=== PATIENT | female | born 1940 | race Caucasian/White ===

== ENCOUNTER → 2023-11-15 | Outpatient (CLI) | payer OTHER ==
[2023-11-15 15:36] LABS: Bacterial Vaginosis PCR Negative (NEGATIVE); Candida Group, PCR NOT DETECTED (NOT DETECT); Candida glabrata-krusei, PCR NOT DETECTED (NOT DETECT)
== END ==
LOC: LAB SHORT 11:34 → LAB 11:34
PROVIDERS: Obstetrics & Gynecology
DX: N89.8 Other specified noninflammatory disorders of vagina (principal)
CPT/HCPCS: 87481; 87661; 87801

== ENCOUNTER → 2023-11-24 | Outpatient (CLI) | payer OTHER | LOC: LAB SHORT 17:31 → LAB 17:31 | DX: R50.9 Fever, unspecified (principal) | CPT/HCPCS: 87077; 87086; 87186 ==

== ENCOUNTER 2023-11-26 15:43 | Emergency (ER) | payer OTHER ==
[~2023-11-26] VITALS: Ht 162.6 cm; Wt 63.5 kg
[2023-11-26 18:13] LABS: BASOPHILS ABSOLUTE AUTO 0.01 K/mm3 (0.00-0.23); BASOPHILS PERCENT AUTO 0 % (0-2); EOSINOPHILS ABSOLUTE AUTO 0.08 K/mm3 (0.00-0.68); EOSINOPHILS PERCENT AUTO 1 % (0-6); Hematocrit 36.4 % (33.0-51.0); Hemoglobin 12.1 g/dL (11.5-16.0); IMMATURE GRAN ABSOLUTE AUTO 0.04 K/mm3 (0.00-0.10); IMMATURE GRAN PERCENT AUTO 0 % (0-1); LYMPHOCYTES ABSOLUTE AUTO 0.85 K/mm3 (0.84-5.20); LYMPHOCYTES PERCENT AUTO 10 % (21-46); MONOCYTES ABSOLUTE AUTO 0.97 K/mm3 (0.16-1.47); MONOCYTES PERCENT AUTO 11 % (4-13); Mean Corpuscular HGB 30.5 pg (26.0-34.0); Mean Corpuscular HGB Conc 33.2 g/dL (31.5-36.5); Mean Corpuscular Volume 92 fL (80-100); Mean Platelet Volume 10.5 fL (9.1-12.4); NEUTROPHILS ABSOLUTE AUTO 7.02 K/mm3 (1.96-9.15); NEUTROPHILS PERCENT AUTO 78 % (41-73); Platelet Count 222 K/mm3 (150-400); RDW Coefficient Variation 13.3 % (11.7-14.2); RDW Standard Deviation 45.5 fL (35.1-46.3); Red Blood Cell Count 3.97 M/mm3 (3.80-5.20); White Blood Cell Count 8.97 K/mm3 (4.00-11.30)
[2023-11-26 18:36] LABS: Albumin, Blood 2.8 g/dL (3.4-5.0); Albumin/Globulin Ratio 0.7 (0.8-1.8); Bilirubin, Total 0.5 mg/dL (0.1-1.0); Bun/Creatinine Ratio 21.7 (12.0-20.0); Calcium, Blood 9.4 mg/dL (8.5-10.1); Creatinine, Blood 2.72 mg/dL (0.40-1.00); Globulin, Blood 4.1 g/dL (2.2-4.0); Potassium, Blood 3.6 mmol/L (3.5-5.5); Total Protein, Blood 6.9 g/dL (6.4-8.2)
== END 2023-11-26 21:42 | disposition home or self-care (01) ==
LOC: ER 15:43
PROVIDERS: Student in an Organized Health Care Education/Training Program
DX: R31.9 Hematuria, unspecified (principal); N18.9 Chronic kidney disease, unspecified; D63.1 Anemia in chronic kidney disease; Z88.0 Allergy status to penicillin; Z88.2 Allergy status to sulfonamides; Z88.1 Allergy status to other antibiotic agents
CPT/HCPCS: 76770; 80053; 85025; 99284-25

== ENCOUNTER → 2023-12-21 | Outpatient (CLI) | payer OTHER ==
[2023-12-22 07:51] LABS: Bacterial Vaginosis PCR Negative (NEGATIVE); Candida Group, PCR NOT DETECTED (NOT DETECT)
[2023-12-22 07:58] LABS: Candida glabrata-krusei, PCR DETECTED (NOT DETECT)
== END ==
LOC: LAB SHORT 13:56 → LAB 13:56
PROVIDERS: Obstetrics & Gynecology
DX: N89.8 Other specified noninflammatory disorders of vagina (principal)
CPT/HCPCS: 87481; 87661; 87801

== ENCOUNTER → 2023-12-28 | Outpatient (CLI) | payer OTHER ==
[2023-12-28 16:59] LABS: Bacterial Vaginosis PCR Negative (NEGATIVE); Candida Group, PCR NOT DETECTED (NOT DETECT)
[2023-12-28 17:15] LABS: Candida glabrata-krusei, PCR DETECTED (NOT DETECT)
== END | disposition home or self-care (01) ==
LOC: LAB SHORT 13:31 → LAB 13:31
PROVIDERS: Obstetrics & Gynecology
DX: N89.8 Other specified noninflammatory disorders of vagina (principal)
CPT/HCPCS: 87481; 87661; 87801

== ENCOUNTER → 2024-01-04 | Outpatient (CLI) | payer OTHER ==
[2024-01-12 07:33] LABS: HPV HIGH RISK BY TMA Not Detected; HPV SOURCE Vaginal
== END ==
LOC: LAB 13:56 → LAB SHORT 13:56
PROVIDERS: Obstetrics & Gynecology
DX: Z01.419 Encounter for gynecological examination (general) (routine) without abnormal findings (principal)
CPT/HCPCS: 87624; G0123

== ENCOUNTER → 2024-02-15 | Outpatient (CLI) | payer OTHER ==
[2024-02-15 15:49] LABS: Source, Urine Clean Catch
[2024-02-15 17:23] LABS: Appearance, Urine Hazy (Clear); Bilirubin, Urine Neg (Neg); Blood, Urine 4+ (Neg); Glucose Qualitative, Urine Neg (Neg); Ketones, Urine Neg (Neg); Leukocyte Esterase, Urine 3+ (Neg); Nitrite, Urine Neg (Neg); Protein, Urine 3+ (Neg); Specific Gravity, Urine 1.005 (1.003-1.022); Urobilinogen, Urine NORM (Normal)
[2024-02-15 18:26] LABS: Color, Urine Pale Yellow (P-Yellow); Red Blood Cells, Urine 0-2 /hpf (0-2); Squamous Epithelial Cells Rare /hpf (Few); White Blood Cells, Urine 50-100 /hpf (0-5)
[2024-02-15 18:27] LABS: Bacteria Many /hpf; Mucus Light (0-Heavy)
== END | disposition home or self-care (01) ==
LOC: LAB SHORT 15:44 → LAB 15:44
PROVIDERS: Obstetrics & Gynecology
DX: N39.498 Other specified urinary incontinence (principal)
CPT/HCPCS: 81001; 87077; 87086; 87186

== ENCOUNTER → 2024-02-23 | Outpatient (CLI) | payer OTHER | LOC: LAB SHORT 13:37 → LAB 13:37 | DX: R30.0 Dysuria (principal) | CPT/HCPCS: 87086 ==

== ENCOUNTER → 2024-02-29 | Outpatient (CLI) | payer OTHER ==
[2024-02-29 12:32] LABS: Source, Urine Clean Catch
[2024-02-29 15:33] LABS: Bilirubin, Urine Neg (Neg); Blood, Urine 1+ (Neg); Glucose Qualitative, Urine Neg (Neg); Ketones, Urine Neg (Neg); Leukocyte Esterase, Urine 2+ (Neg); Nitrite, Urine Neg (Neg); Protein, Urine 3+ (Neg); Urobilinogen, Urine NORM (Normal)
[2024-02-29 15:49] LABS: Appearance, Urine Clear (Clear); Color, Urine Pale Yellow (P-Yellow)
[2024-02-29 15:50] LABS: Bacteria Few /hpf; Red Blood Cells, Urine 0-2 /hpf (0-2); Squamous Epithelial Cells Rare /hpf (Few)
== END ==
LOC: LAB 12:30 → LAB SHORT 12:30
PROVIDERS: Obstetrics & Gynecology
DX: R30.0 Dysuria (principal)
CPT/HCPCS: 81001; 87086

== ENCOUNTER → 2024-03-07 | Outpatient (CLI) | payer OTHER ==
[2024-03-07 12:22] LABS: Source, Urine Clean Catch
[2024-03-07 13:46] LABS: Appearance, Urine Hazy (Clear); Bilirubin, Urine Neg (Neg); Blood, Urine 1+ (Neg); Glucose Qualitative, Urine Neg (Neg); Ketones, Urine Neg (Neg); Leukocyte Esterase, Urine 3+ (Neg); Nitrite, Urine Neg (Neg); Protein, Urine 3+ (Neg); Urobilinogen, Urine NORM (Normal)
[2024-03-07 14:01] LABS: Color, Urine Pale Yellow (P-Yellow)
[2024-03-07 14:02] LABS: Bacteria Many /hpf; Renal Epithelial Rare /hpf (0-Rare); Squamous Epithelial Cells Few /hpf (Few); White Blood Cells, Urine 25-50 /hpf (0-5)
== END | disposition home or self-care (01) ==
LOC: LAB SHORT 12:20 → LAB 12:20
PROVIDERS: Obstetrics & Gynecology
DX: R35.0 Frequency of micturition (principal)
CPT/HCPCS: 81001; 87077; 87086; 87186

== ENCOUNTER → 2024-03-16 | Outpatient (CLI) | payer OTHER ==
[2024-03-16 12:46] LABS: Source, Urine Clean Catch
[2024-03-16 14:30] LABS: Appearance, Urine Hazy (Clear); Bilirubin, Urine Neg (Neg); Blood, Urine 2+ (Neg); Glucose Qualitative, Urine Neg (Neg); Ketones, Urine Neg (Neg); Leukocyte Esterase, Urine 3+ (Neg); Nitrite, Urine Neg (Neg); Protein, Urine 3+ (Neg); Urobilinogen, Urine NORM (Normal)
[2024-03-16 14:57] LABS: Color, Urine Pale Yellow (P-Yellow)
[2024-03-16 14:59] LABS: Bacteria Many /hpf; Squamous Epithelial Cells Few /hpf (Few); Transitional Epithelial Cells Few /hpf (0-Rare); White Blood Cells, Urine 25-50 /hpf (0-5)
== END ==
LOC: LAB 12:42 → LAB SHORT 12:42
PROVIDERS: Obstetrics & Gynecology
DX: R35.0 Frequency of micturition (principal)
CPT/HCPCS: 81001; 87077; 87086; 87186

== ENCOUNTER → 2024-03-23 | Outpatient (CLI) | payer OTHER ==
[2024-03-23 20:15] LABS: Bacterial Vaginosis PCR Negative (NEGATIVE); Candida Group, PCR NOT DETECTED (NOT DETECT); Candida glabrata-krusei, PCR NOT DETECTED (NOT DETECT)
== END ==
LOC: LAB SHORT 17:25 → LAB 17:25
PROVIDERS: Obstetrics & Gynecology
DX: N89.8 Other specified noninflammatory disorders of vagina (principal)
CPT/HCPCS: 87481; 87661; 87801

== ENCOUNTER → 2024-03-31 | Outpatient (CLI) | payer OTHER ==
[2024-03-31 13:30] LABS: Source, Urine Voided
[2024-03-31 15:15] LABS: Appearance, Urine Hazy (Clear); Bilirubin, Urine Neg (Neg); Blood, Urine 4+ (Neg); Glucose Qualitative, Urine Neg (Neg); Ketones, Urine Neg (Neg); Leukocyte Esterase, Urine 3+ (Neg); Nitrite, Urine Neg (Neg); Protein, Urine 3+ (Neg); Specific Gravity, Urine 1.005 (1.003-1.022); Urobilinogen, Urine NORM (Normal)
[2024-03-31 15:25] LABS: Color, Urine Pale Yellow (P-Yellow)
[2024-03-31 15:26] LABS: Bacteria Many /hpf; Squamous Epithelial Cells Rare /hpf (Few); White Blood Cells, Urine 25-50 /hpf (0-5)
== END | disposition home or self-care (01) ==
LOC: LAB 13:23 → LAB SHORT 13:23
PROVIDERS: Obstetrics & Gynecology
DX: R35.0 Frequency of micturition (principal)
CPT/HCPCS: 81001; 87077; 87086; 87186

== ENCOUNTER → 2024-04-27 | Outpatient (CLI) | payer OTHER ==
[2024-04-27 13:04] LABS: Source, Urine Voided
[2024-04-27 14:51] LABS: Appearance, Urine Cloudy (Clear); Bilirubin, Urine Neg (Neg); Blood, Urine 2+ (Neg); Glucose Qualitative, Urine 1+ (Neg); Ketones, Urine Neg (Neg); Leukocyte Esterase, Urine 3+ (Neg); Nitrite, Urine Neg (Neg); Protein, Urine 4+ (Neg); Specific Gravity, Urine 1.015 (1.003-1.022); Urobilinogen, Urine NORM (Normal)
[2024-04-27 14:58] LABS: Color, Urine Pale Yellow (P-Yellow)
[2024-04-27 15:00] LABS: White Blood Cells, Urine TNTC /hpf (0-5)
[2024-04-27 15:01] LABS: Bacteria Many /hpf; Squamous Epithelial Cells Rare /hpf (Few)
== END | disposition home or self-care (01) ==
LOC: LAB SHORT 12:59 → LAB 12:59
PROVIDERS: Obstetrics & Gynecology
DX: R35.0 Frequency of micturition (principal)
CPT/HCPCS: 81001; 87077; 87086; 87186

== ENCOUNTER 2024-05-25 13:00 | Inpatient (IN) | payer OTHER ==
[~2024-05-25] VITALS: Ht 154.9 cm; Wt 46.6 kg
[~2024-05-25 13:00] MED LIST: AMLO10 PO; ATOR80 PO; CIPR250 PO; ESTRADIOL42.5 GM VAG; EUTHYROX125 MCG PO; IPRATROPIUM BRO15 ML; Isosorbide Mono30 MG PO; VIT D2-K1 20-1259 ML PO
[2024-05-25 13:26] VITALS: BP 158/72
[2024-05-25] MEDS ORDERED: Ondansetron HCl 2 MG / ML 2ML Vial IV PRN (13:45)
[2024-05-25] MEDS ORDERED: FLU VACC TS2024-25(6MOS UP)/PF 45 MCG/0.5 ML SYRINGE IM SCH (13:45)
[2024-05-25 15:25] VITALS: BP 157/69
[2024-05-25] MEDS ORDERED: VITAMIN D5000 UNIT PO (15:31)
[2024-05-25 16:14] LABS: BASOPHILS ABSOLUTE AUTO 0.03 K/mm3 (0.00-0.23); BASOPHILS PERCENT AUTO 0 % (0-2); EOSINOPHILS ABSOLUTE AUTO 0.01 K/mm3 (0.00-0.68); EOSINOPHILS PERCENT AUTO 0 % (0-6); Hematocrit 31.2 % (33.0-51.0); Hemoglobin 10.4 g/dL (11.5-16.0); IMMATURE GRAN ABSOLUTE AUTO 0.04 K/mm3 (0.00-0.10); IMMATURE GRAN PERCENT AUTO 0 % (0-1); LYMPHOCYTES ABSOLUTE AUTO 0.51 K/mm3 (0.84-5.20); LYMPHOCYTES PERCENT AUTO 4 % (21-46); MONOCYTES ABSOLUTE AUTO 0.43 K/mm3 (0.16-1.47); MONOCYTES PERCENT AUTO 4 % (4-13); Mean Corpuscular HGB 30.2 pg (26.0-34.0); Mean Corpuscular HGB Conc 33.3 g/dL (31.5-36.5); Mean Corpuscular Volume 91 fL (80-100); Mean Platelet Volume 11.1 fL (9.1-12.4); NEUTROPHILS ABSOLUTE AUTO 10.99 K/mm3 (1.96-9.15); NEUTROPHILS PERCENT AUTO 92 % (41-73); Platelet Count 207 K/mm3 (150-400); RDW Coefficient Variation 13.8 % (11.7-14.2); RDW Standard Deviation 45.1 fL (35.1-46.3); Red Blood Cell Count 3.44 M/mm3 (3.80-5.20); White Blood Cell Count 12.01 K/mm3 (4.00-11.30)
[2024-05-25 16:39] LABS: Bun/Creatinine Ratio 13.2 (12.0-20.0); Calcium, Blood 10.1 mg/dL (8.5-10.1); Creatinine, Blood 2.05 mg/dL (0.40-1.00); Potassium, Blood 4.1 mmol/L (3.5-5.5)
--- NOTE | 2024-05-25 18:23 | NUR ---
Direct Admit / End of Shift Pt brought to PCU-7 as a medical status direct admit from imaging @ 1315. Pt had a right renal biopsy w/ "more than normal" amount of bleeding after procedure. Pt right lower back w/ swelling surrounding access site for biopsy. Pt A&O x4. VSS. Spo2 > 92% on RA. Monitor showing SR, HR 90s. Pt reporting "severe ache" in area of biopsy but states "I think it might be intestinal." Pt reporting "the severe pain started a few days ago." Then the pt states "the pain started maybe 3 weeks ago." Pt states "they did the biopsy today because of the way my kidney numbers have been." Pt then states "I had a polyp & my doctor was thinking I should be on an intestinal medication. I'm not sure what exactly my pain is from." Pt having difficulty describing where exactly the pain is coming from. Pt up to BSC 3-4 times this shift w/ small-mod amount of dark maroon clots & bright red blood in commode. Pt states amount in commode is "about the same" as the amount she was having after the biopsy prior to arrival to PCU. Pt w/ nausea, medicated per EMAR w/ improvement.
[2024-05-25 20:55] VITALS: BP 127/67
[2024-05-25] MEDS ORDERED: Estradiol Vag Cream 0.1 MG/G 42.5 GM Tube VAG SCH (21:00)
[2024-05-25] MEDS ORDERED: Ipratropium 0.06% Nasal Spray SCH (21:00)
[2024-05-25] MEDS ORDERED: Acetaminophen 500 MG Tab PO PRN (21:25)
[2024-05-26] VITALS (8 sets, daily range): BP systolic 100–134; BP diastolic 52–82
[2024-05-26 04:36] LABS: Hematocrit 24.3 % (33.0-51.0); Mean Corpuscular HGB 30.1 pg (26.0-34.0); Mean Corpuscular HGB Conc 32.9 g/dL (31.5-36.5); Mean Corpuscular Volume 91 fL (80-100); Mean Platelet Volume 11.4 fL (9.1-12.4); Platelet Count 148 K/mm3 (150-400); RDW Coefficient Variation 14.1 % (11.7-14.2); RDW Standard Deviation 46.8 fL (35.1-46.3); Red Blood Cell Count 2.66 M/mm3 (3.80-5.20); White Blood Cell Count 21.99 K/mm3 (4.00-11.30)
[2024-05-26 05:06] LABS: BAND PERCENT MAN 18 % (0-8); BASOPHILS PERCENT MAN 0 % (0-2); EOSINOPHILS PERCENT MAN 0 % (0-6); MONOCYTES ABSOLUTE MAN 0.21 K/mm3 (0.16-1.47); MONOCYTES PERCENT MAN 1 % (4-13); NEUTROPHILS ABSOLUTE MAN 21.77 K/mm3 (1.96-9.15); SEG NEUTROPHILS PERCENT MAN 81 % (41-73); TOTAL CELLS COUNTED 100
[2024-05-26] MEDS ORDERED: Levothyroxine Sodium 0.025 MG Tab PO SCH (06:00)
--- NOTE | 2024-05-26 07:17 | NUR ---
SHIFT SUMMARY: PT IS A&OX4, FORGETFUL AND PLEASANTLY CONFUSED AT TIMES. VSS ON RA, FEBRILE, T-MAX 100.9F. MILD DISCOMFORT TO HER RIGHT SIDE OF BACK WHERE HER PUNCTURE SITE IS. DRESSING IS C/D/I. AREA IS SOFT TO PALPATE BUT TENDER AND ECCYMOTIC. MEDICATED WITH TYLENOL. ON A CONS CARB DIET, PT JUST KEPT SAYING SHE ALWAYS DRINKS A LOT OF WATER TO MAKE HER URINATE. SBA TO BSC. PT VOIDED 150 ML OF DARK MAROON COLORED BLOOD. PULL-UP WITH SMALL AMOUNT OF DARK MAROON COLORED BLOOD WELL. HGB DROPPED FROM 10.4 TO 8.0, DR CAMPBELL MADE AWARE. NEW ORDER TO RECHECK H&H 6 HOURS AFTER LAST DRAW. NO BM THIS SHIFT, PT STATES SHE FEELS CONSTIPATED. BED IN LOWEST POSITION, CALL LIGHT WITHIN REACH. BED ALARM SET FOR PT'S SAFETY.
[2024-05-26] MEDS ORDERED: CefTRIAXone Sodium 1,000 MG in NS 100 ML IV SCH (07:33)
[2024-05-26 07:55] LABS: Source, Urine Clean Catch
[2024-05-26] MEDS ORDERED: Lactated Ringer's 500 ML IV SCH ×2 (08:15→14:15)
[2024-05-26 08:20] LABS: Appearance, Urine Bloody (Clear); Bilirubin, Urine Neg (Neg); Blood, Urine 4+ (Neg); Color, Urine Red (P-Yellow); Glucose Qualitative, Urine Neg (Neg); Ketones, Urine Neg (Neg); Leukocyte Esterase, Urine Neg (Neg); Nitrite, Urine Neg (Neg); Protein, Urine 4+ (Neg); Specific Gravity, Urine 1.015 (1.003-1.022); Urobilinogen, Urine NORM (Normal)
[2024-05-26 08:31] LABS: Bacteria Mod /hpf; Red Blood Cells, Urine 50-100 /hpf (0-2); Squamous Epithelial Cells Few /hpf (Few); White Blood Cells, Urine 25-50 /hpf (0-5)
[2024-05-26] MEDS ORDERED: Isosorbide Mononitrate 30 MG TABCR PO SCH (09:00)
[2024-05-26] MEDS ORDERED: Atorvastatin 40 MG Tab PO SCH (09:00)
[2024-05-26] MEDS ORDERED: AmLODIPine Besylate 5 MG Tab PO SCH (09:00)
[2024-05-26] MEDS ORDERED: Cholecalciferol 1000 Unit Tablet (=25MCG) PO SCH (09:00)
[2024-05-26 10:30] LABS: Hematocrit 23.7 % (33.0-51.0); Hemoglobin 7.8 g/dL (11.5-16.0)
[2024-05-26 13:29] LABS: Hematocrit 23.1 % (33.0-51.0); Hemoglobin 7.7 g/dL (11.5-16.0)
--- NOTE | 2024-05-26 18:05 | NUR ---
SHIFT SUMMARY PT A&Ox4, CALLS AND COMMUNICATES NEEDS APPROPRIATELY. WOKE UP FROM NAP A LITTLE SCATTERED BRAINED AND STUTTERING AT TIMES, STATED THAT HAPPENS AT HOME WHEN SHE WAKES UP SUDDENLY. BP SOFT WITH SBP 100's, MAP> 65, PT REPORTED AN EPISODE OF FEELING DIZZY THIS AFTERNOON, HAS NOT REPORTED ANY EPISODES SINCE. SINUS 70's, DENIES CP/PRESSURE. SBA TO BSC, CONTINENT OF URINE - DARK RED HEMATURIA. NO BM THIS SHIFT. T-MAX: 100.7. BRUISING AT BIOPSY SITE REMAINED UNCHANGED. NO OTHER EVENTS, WILL REPORT TO ONCOMING RN.
[2024-05-26 18:32] LABS: Hematocrit 25.3 % (33.0-51.0); Hemoglobin 8.4 g/dL (11.5-16.0)
--- NOTE | 2024-05-26 22:32 | NUR ---
RECEIVED CALL FROM LAB AT 2223 STATING PT'S BLOOD CULTURE IS POSITIVE FOR GRAM NEGATIVE BASCILLI. CALLED PHARMACIST AND DISCUSSED RESULTS AND PT'S CURRENT ANTIBIOTIC ORDER. RECOMMENDED TO CONTINUE WITH CURRENT MEDICATIONS AND UPDATE HOSPITALIST IN THE AM WITH POSITIVE CULTURE RESULT.
[2024-05-27] MEDS ORDERED: Polyethylene Glycol 3350 17 gm PO ONE (02:00)
[2024-05-27 03:57] VITALS: BP 122/60
--- NOTE | 2024-05-27 04:48 | NUR ---
AFTER PT RETURNED TO BED FROM USING THE BSC, PT'S O2 SATURATIONS DROPPED INTO THE 70'S. ATTEMPTED TO TITRATE O2 VIA NC, BUT UNABLE TO RETURN SATS >90%. CALLED RESPIRATORY THERAPY WHO RECOMMENDED CPAP. CALLED ON-CALL RESIDENT AND DISCUSSED PT INCLUDING PAST MEDICAL HISTORY AND POSITIVE BLOOD CULTURE RESULTS. ORDERS WERE PLACED FOR CPAP, CHEST X-RAY AND LABS. PLAN TO AWAIT RESULTS PRIOR TO ORDERING DIURETIC. PT RESTING COMFORTABLY, ABLE TO MAKE HER NEEDS KNOWN, CPAP IN PLACE MAINTAINING SATS >90%.
[2024-05-27 05:05] LABS: BASOPHILS ABSOLUTE AUTO 0.03 K/mm3 (0.00-0.23); BASOPHILS PERCENT AUTO 0 % (0-2); EOSINOPHILS ABSOLUTE AUTO 0.13 K/mm3 (0.00-0.68); EOSINOPHILS PERCENT AUTO 1 % (0-6); Hematocrit 25.3 % (33.0-51.0); Hemoglobin 8.5 g/dL (11.5-16.0); IMMATURE GRAN PERCENT AUTO 3 % (0-1); LYMPHOCYTES ABSOLUTE AUTO 0.35 K/mm3 (0.84-5.20); LYMPHOCYTES PERCENT AUTO 2 % (21-46); MONOCYTES ABSOLUTE AUTO 0.84 K/mm3 (0.16-1.47); MONOCYTES PERCENT AUTO 5 % (4-13); Mean Corpuscular HGB Conc 33.6 g/dL (31.5-36.5); Mean Corpuscular Volume 89 fL (80-100); Mean Platelet Volume 11.2 fL (9.1-12.4); NEUTROPHILS ABSOLUTE AUTO 15.83 K/mm3 (1.96-9.15); NEUTROPHILS PERCENT AUTO 90 % (41-73); Platelet Count 137 K/mm3 (150-400); RDW Coefficient Variation 14.3 % (11.7-14.2); RDW Standard Deviation 46.5 fL (35.1-46.3); Red Blood Cell Count 2.83 M/mm3 (3.80-5.20); White Blood Cell Count 17.68 K/mm3 (4.00-11.30)
[2024-05-27 05:35] LABS: Albumin, Blood 2.6 g/dL (3.4-5.0); Albumin/Globulin Ratio 0.8 (0.8-1.8); Bilirubin, Total 0.5 mg/dL (0.1-1.0); Bun/Creatinine Ratio 12.4 (12.0-20.0); Calcium, Blood 9.2 mg/dL (8.5-10.1); Creatinine, Blood 3.38 mg/dL (0.40-1.00); Globulin, Blood 3.1 g/dL (2.2-4.0); Potassium, Blood 4.3 mmol/L (3.5-5.5); Total Protein, Blood 5.7 g/dL (6.4-8.2)
--- NOTE | 2024-05-27 05:52 | NUR ---
SHIFT SUMMARY: EMMANUEL IS A&OX4, TEMP MILDLY ELEVATED. PT ON CPAP TO MAINTAIN SATS >90%. LUNGS WITH MILD CRACKLES IN THE BASES. ON-CALL RESIDENT AT BEDSIDE ASSESSING PT. SODIUM DROPPED TO 125 FROM 138, UPDATED RESIDENT. GFR DROPPED FROM 23 TO 13, CREATININE 3.38 FROM 2.05. AWAITING CHEST X-RAY RESULTS AND BNP. PT IS A STANDBY ASSIST TO THE BSC, PULL-UP STYLE ATTENDS IN PLACE. SHE IS ABLE TO TURN AND REPOSITION HERSELF INDEPENDENTLY, IS TOLERATING PO INTAKE WELL. SHE HAS REPORTED INTERMITTENT NAUSEA THIS SHIFT FOR WHICH SHE HAS REFUSED MEDICATION. SHE HAS COMPLAINED OF RLQ PAIN WHICH SHE ATTRIBUTED TO CONSTIPATION STATING THAT SHE USUALLY HAS DIARRHEA AT HOME, BUT HAS NOT HAD A BOWEL MOVEMENT SINCE ADMISSION TO THE HOSPITAL. DOSE OF MIRALAX GIVEN THIS SHIFT, NO OUTPUT YET BUT PT REPORTS PASSING GAS. SHE IS LYING IN BED WITH THE CALL LIGHT IN REACH, BED IN LOWEST POSITION, BED ALARM ON. WILL GIVE REPORT TO DAY SHIFT RN.
[2024-05-27 08:10] VITALS: BP 124/74
[2024-05-27 08:29] LABS: Bun/Creatinine Ratio 12.3 (12.0-20.0); Calcium, Blood 8.7 mg/dL (8.5-10.1); Creatinine, Blood 3.41 mg/dL (0.40-1.00); Potassium, Blood 4.4 mmol/L (3.5-5.5)
[2024-05-27] MEDS ORDERED: Lactobacil 2-S.Thermo-Bifido 1 1 Cap PO SCH (09:00)
[2024-05-27] MEDS ORDERED: Cefepime HCl 1,000 MG in NS 100 ML IV SCH (09:00)
[2024-05-27] MEDS ORDERED: Sodium Chloride 3% 50 ML IV SCH (09:05)
[2024-05-27] MEDS ORDERED: Furosemide 10 MG/ML 4ML Vial IV SCH (09:33)
[2024-05-27 11:27] VITALS: BP 123/66
[2024-05-27 15:53] LABS: Bun/Creatinine Ratio 13.2 (12.0-20.0); Calcium, Blood 9.1 mg/dL (8.5-10.1); Creatinine, Blood 3.49 mg/dL (0.40-1.00); Potassium, Blood 4.5 mmol/L (3.5-5.5)
[2024-05-27 15:57] VITALS: BP 124/81
--- NOTE | 2024-05-27 17:11 | NUR ---
SHIFT SUMMARY PT A&Ox4, CALLS AND COMMUNICATES NEEDS APPROPRIATELY. BP STABLE, SINUS 80's, DENIED CP/PRESSURE THROUGHOUT SHIFT. SpO2> 92% 2L VIA NC, DENIES SOB. SBA TO BSC, CONTINENT OF URINE - DARK RED HEMATURIA. SMALL BM THIS SHIFT. AFEBRILE. BRUISING AT BIOPSY SITE REMAINED UNCHANGED. NO OTHER EVENTS, WILL REPORT TO ONCOMING RN.
[2024-05-27 20:05] VITALS: BP 142/79
[2024-05-27 23:58] VITALS: BP 149/81
[2024-05-28] VITALS (11 sets, daily range): BP systolic 115–155; BP diastolic 64–88
[2024-05-28 04:38] LABS: Percent Saturation 4.5 % (15.0-50.0)
--- NOTE | 2024-05-28 05:18 | NUR ---
SHIFT SUMMARY A/Ox4 AND COOPERATIVE WITH CARE. ANSWERS QUESTIONS APPROPRIATELY AND ABLE TO MAKE HER NEEDS KNOWN. CARDIAC, REMAINS IN SR 70-80'S WITH NO REPORTS OF CP, PRESSURE, OR DIZZINESS. SBP REMAINS STABLE RANGING 130-140'S. RESPIRATORY, HAD TO BE TIRATED FROM 3 L TO 5L'S NC TO MAINTAIN SPO2 >90%. DENIES SOB OR DYSPNEA AT THIS TIME. INTERMITTENT USE OF CPAP T/O THE NIGHT. GI/, DENIES N/V/D, ABLE TO TRANSFER TO [facility] [place] VIA ONE STAFF ASSIST. REPORTS INTERMITTENT RIGHT FLANK PAIN, MANAGED WELL WITH TYLENOL. CONTINUES TO HAVE BLOODY URINE, BUT NO FORMED CLOTS NOTED. UA COLLECTED PER MD ORDERS. NO NEW ORDERS AT THIS TIME, WILL GIVE REPORT TO ONCOMING RN. DERIAN GOMEZ OF THIS NOTE.
[2024-05-28 06:12] LABS: BASOPHILS ABSOLUTE AUTO 0.02 K/mm3 (0.00-0.23); BASOPHILS PERCENT AUTO 0 % (0-2); EOSINOPHILS ABSOLUTE AUTO 0.01 K/mm3 (0.00-0.68); EOSINOPHILS PERCENT AUTO 0 % (0-6); Hematocrit 26.6 % (33.0-51.0); Hemoglobin 9.2 g/dL (11.5-16.0); IMMATURE GRAN ABSOLUTE AUTO 0.14 K/mm3 (0.00-0.10); IMMATURE GRAN PERCENT AUTO 1 % (0-1); LYMPHOCYTES ABSOLUTE AUTO 0.43 K/mm3 (0.84-5.20); LYMPHOCYTES PERCENT AUTO 3 % (21-46); MONOCYTES PERCENT AUTO 6 % (4-13); Mean Corpuscular HGB 30.8 pg (26.0-34.0); Mean Corpuscular HGB Conc 34.6 g/dL (31.5-36.5); Mean Corpuscular Volume 89 fL (80-100); Mean Platelet Volume 12.2 fL (9.1-12.4); NEUTROPHILS ABSOLUTE AUTO 13.26 K/mm3 (1.96-9.15); NEUTROPHILS PERCENT AUTO 90 % (41-73); Platelet Count 150 K/mm3 (150-400); RDW Coefficient Variation 14.2 % (11.7-14.2); RDW Standard Deviation 46.1 fL (35.1-46.3); Red Blood Cell Count 2.99 M/mm3 (3.80-5.20); White Blood Cell Count 14.66 K/mm3 (4.00-11.30)
[2024-05-28 06:34] LABS: Alanine Aminotransfer (ALT/SGP 30 U/L (12-78); Albumin, Blood 2.5 g/dL (3.4-5.0); Albumin/Globulin Ratio 0.7 (0.8-1.8); Alk Phos 89 U/L (50-136); Anion Gap 16 mmol/L (3-11); Aspartate Aminotrans (AST/SGOT 53 U/L (12-37); Bilirubin, Total 0.4 mg/dL (0.1-1.0); Blood Urea Nitrogen 48 mg/dL (8-24); Bun/Creatinine Ratio 12.7 (12.0-20.0); CO2, Blood 16 mmol/L (21-32); Calcium, Blood 9.1 mg/dL (8.5-10.1); Chloride, Blood 102 mmol/L (98-108); Creatinine, Blood 3.78 mg/dL (0.40-1.00); Globulin, Blood 3.5 g/dL (2.2-4.0); Glomerular Filtration Rate 11 (60-); Glucose, Blood 75 mg/dL (70-99); Phosphorus, Blood 3.6 mg/dL (2.5-4.9); Potassium, Blood 4.3 mmol/L (3.5-5.5); Sodium, Blood 130 mmol/L (136-145)
[2024-05-28] MEDS ORDERED: FentaNYL Citrate 50 MCG/ML 2 ML Injection IV PRN (08:15)
[2024-05-28] MEDS ORDERED: Aspirin 81 MG Chew PO ONE ×2 (08:35→09:00)
[2024-05-28] MEDS ORDERED: Aspirin 325 MG Tab PO ONE (09:00)
[2024-05-28] MEDS ORDERED: Nitroglycerin 0.4 MG SUBL SL PRN (09:05)
[2024-05-28] MEDS ORDERED: CefTRIAXone Sodium 2,000 MG in NS 100 ML IV SCH (09:07)
[2024-05-28] MEDS ORDERED: Isosorbide Mononitrate 30 MG TABCR PO SCH (12:00)
--- NOTE | 2024-05-28 18:16 | NUR ---
SHIFT SUMMARY PT A&Ox4, CALLS AND COMMUNICATES NEEDS APPROPRIATELY. BP STABLE, SINUS 80's, INTERMITTENT CHEST PRESSURE/TIGHTNESS THROUGHOUT SHIFT. SpO2> 92% 2-5L VIA NC, DESATS TO MID-LOW 80's WITH ACTIVITY, REPORTS SOB WITH ACTIVITY. SBA TO BSC, CONTINENT OF URINE - PALE/PINK URINE. SMALL BMs THIS SHIFT. AFEBRILE. BRUISING AT BIOPSY SITE REMAINED UNCHANGED. NO OTHER EVENTS, WILL REPORT TO ONCOMING RN.
--- NOTE | 2024-05-29 00:35 | NUR ---
SHIFT SUMMARY NEURO: FORGETFUL WHEN WAKING UP OTHERWISE WNL. CARDIAC: SINUS TO SINUS TACH. TACHYCARDIA SEEN WHEN STILL ON 15L NC. HR DECREASED AFTER BEING PLACED ON BIPAP. LUNGS: COARSE CRACKLES UP TO BILATERAL MID LOBES. PT TRANSITIONED FROM CPAP TO BIPAP PEEP OF 8/40% AROUND 2300 BY RESPIRATORY. CXR ORDERED FOR AM. PT DESATTED TO 79% WHILE BRUSHING TEETH ON 15L NC. PT EDUCATED TO STAY IN BED. PT'S RESPIRATORY STATUS BECOMING MORE FRAGILE. GI/: PUREWICK IN PLACE, URINE CLEAR AT THIS TIME.
[2024-05-29 04:50] LABS: BASOPHILS ABSOLUTE AUTO 0.04 K/mm3 (0.00-0.23); BASOPHILS PERCENT AUTO 0 % (0-2); EOSINOPHILS ABSOLUTE AUTO 0.08 K/mm3 (0.00-0.68); EOSINOPHILS PERCENT AUTO 1 % (0-6); Hematocrit 24.5 % (33.0-51.0); Hemoglobin 8.1 g/dL (11.5-16.0); IMMATURE GRAN ABSOLUTE AUTO 0.12 K/mm3 (0.00-0.10); IMMATURE GRAN PERCENT AUTO 1 % (0-1); LYMPHOCYTES ABSOLUTE AUTO 0.54 K/mm3 (0.84-5.20); LYMPHOCYTES PERCENT AUTO 5 % (21-46); MONOCYTES ABSOLUTE AUTO 0.81 K/mm3 (0.16-1.47); MONOCYTES PERCENT AUTO 8 % (4-13); Mean Corpuscular HGB 29.5 pg (26.0-34.0); Mean Corpuscular HGB Conc 33.1 g/dL (31.5-36.5); Mean Corpuscular Volume 89 fL (80-100); Mean Platelet Volume 11.5 fL (9.1-12.4); NEUTROPHILS ABSOLUTE AUTO 9.26 K/mm3 (1.96-9.15); NEUTROPHILS PERCENT AUTO 85 % (41-73); Platelet Count 157 K/mm3 (150-400); RDW Coefficient Variation 14.3 % (11.7-14.2); RDW Standard Deviation 46.4 fL (35.1-46.3); Red Blood Cell Count 2.75 M/mm3 (3.80-5.20); White Blood Cell Count 10.85 K/mm3 (4.00-11.30)
[2024-05-29 04:56] VITALS: BP 150/81
[2024-05-29 05:23] LABS: Albumin, Blood 2.1 g/dL (3.4-5.0); Albumin/Globulin Ratio 0.6 (0.8-1.8); Bilirubin, Total 0.3 mg/dL (0.1-1.0); Bun/Creatinine Ratio 12.2 (12.0-20.0); Calcium, Blood 8.8 mg/dL (8.5-10.1); Creatinine, Blood 4.36 mg/dL (0.40-1.00); Globulin, Blood 3.5 g/dL (2.2-4.0); Potassium, Blood 3.8 mmol/L (3.5-5.5); Total Protein, Blood 5.6 g/dL (6.4-8.2)
[2024-05-29 07:45] VITALS: BP 143/71
[2024-05-29] MEDS ORDERED: Sod Ferric Gluc Complx/Sucrose 125 MG in NS 100 ML IV SCH (09:00)
[2024-05-29] MEDS ORDERED: Ferrous Sulfate 325 MG Tab PO SCH (09:00)
[2024-05-29 11:42] VITALS: BP 138/75
[2024-05-29 14:02] LABS: Bun/Creatinine Ratio 12.4 (12.0-20.0); Calcium, Blood 9.3 mg/dL (8.5-10.1); Creatinine, Blood 4.44 mg/dL (0.40-1.00); Potassium, Blood 4.2 mmol/L (3.5-5.5)
[2024-05-29] MEDS ORDERED: Bumetanide 0.25 MG/ML 4ML ViaL IV ONE (16:15)
[2024-05-29 16:44] VITALS: BP 143/78
--- NOTE | 2024-05-29 19:18 | NUR ---
SHIFT SUMMARY: PT HAS BEEN A&O, FORGETFUL AND IMPULSIVE AT TIMES, COOPERATIVE W/CARE, EASILY REDIRECTED, ABLE TO MAKE NEEDS KNOWN. PT REPORTS OCCASIONAL SOB, STATES IT IS NOT WORSE THAN BEFORE, O2 SATS MAINTAINED >92% ON 6 L/MIN VIA HFNC OR BIPAP AT 10/5 40%. SR ON MONITOR, PT DENIES CP. LOW URINE OUTPUT CONTINUES VIA PUREWICK, APPROX 175 ML OUTPUT W/2 UNMEASURED VOIDS THIS SHIFT, PROVIDER AWARE, NEW ORDERS PLACED. RENAL US COMPLETED THIS SHIFT, MORE IMAGING TO BE COMPLETED TOMORROW. REPORT GIVEN TO KING MONTOYA TO ASSUME CARE OF PT.
[2024-05-29] MEDS ORDERED: OLANZapine 10 MG Vial IM ONE (19:55)
[2024-05-29 20:43] VITALS: BP 142/73
[2024-05-29] MEDS ORDERED: Bumetanide 0.25 MG/ML 4ML ViaL IV SCH (21:00)
--- NOTE | 2024-05-29 23:24 | NUR ---
SHIFT SUMMARY NEURO: PT A/OX4 BUT FORGETFUL AND TAKING LONGER TO THINK THROUGH ORIENTATION QUESTIONS. EQUAL STRENGTH THROUGHOUT. PERRLA. PT HAS HAD POOR REST AND IS NOW HAVING SOME VISUAL HALLUCINATION. 5MG ZYPREXA IM GIVEN WITHOUT EFFECT. CARDIAC: HR INCREASED TO LOW 100'S. LUNGS: CRACKLES IN BASES BUT IMPROVED FROM PREVIOUS NIGHT. PT NOT TOLERATING BIPAP AND ATTRIBUTES LACK OF SLEEP TO IT. REMAINS ON NASAL CANNULA 6L. GI/: PUREWICK IN PLACE. INNACCURATE MEASUREMENTS WITH OUTPUT DUE TO LEAKS. OUPUT IS PALE YELLOW AND CLOUDY.
[2024-05-29 23:51] VITALS: BP 140/79
[2024-05-30 03:58] VITALS: BP 135/78
[2024-05-30 07:51] VITALS: BP 128/67
[2024-05-30 08:21] LABS: BASOPHILS ABSOLUTE AUTO 0.03 K/mm3 (0.00-0.23); BASOPHILS PERCENT AUTO 0 % (0-2); EOSINOPHILS ABSOLUTE AUTO 0.11 K/mm3 (0.00-0.68); EOSINOPHILS PERCENT AUTO 1 % (0-6); Hematocrit 23.9 % (33.0-51.0); Hemoglobin 8.3 g/dL (11.5-16.0); IMMATURE GRAN ABSOLUTE AUTO 0.14 K/mm3 (0.00-0.10); IMMATURE GRAN PERCENT AUTO 2 % (0-1); LYMPHOCYTES ABSOLUTE AUTO 0.39 K/mm3 (0.84-5.20); LYMPHOCYTES PERCENT AUTO 4 % (21-46); MONOCYTES ABSOLUTE AUTO 0.82 K/mm3 (0.16-1.47); MONOCYTES PERCENT AUTO 9 % (4-13); Mean Corpuscular HGB 30.1 pg (26.0-34.0); Mean Corpuscular HGB Conc 34.7 g/dL (31.5-36.5); Mean Corpuscular Volume 87 fL (80-100); Mean Platelet Volume 11.3 fL (9.1-12.4); NEUTROPHILS ABSOLUTE AUTO 7.81 K/mm3 (1.96-9.15); NEUTROPHILS PERCENT AUTO 84 % (41-73); NRBC ABSOLUTE 0.02 K/mm3 (0.00-0.02); NRBC Auto 0.2 /100 WBC (0.0-0.2); Platelet Count 195 K/mm3 (150-400); RDW Coefficient Variation 14.4 % (11.7-14.2); RDW Standard Deviation 44.8 fL (35.1-46.3); Red Blood Cell Count 2.76 M/mm3 (3.80-5.20)
[2024-05-30 08:46] LABS: Albumin, Blood 2.2 g/dL (3.4-5.0); Albumin/Globulin Ratio 0.6 (0.8-1.8); Bilirubin, Total 0.3 mg/dL (0.1-1.0); Bun/Creatinine Ratio 12.6 (12.0-20.0); Calcium, Blood 8.9 mg/dL (8.5-10.1); Creatinine, Blood 4.28 mg/dL (0.40-1.00); Globulin, Blood 3.4 g/dL (2.2-4.0); Potassium, Blood 3.8 mmol/L (3.5-5.5); Total Protein, Blood 5.6 g/dL (6.4-8.2)
[2024-05-30 12:41] VITALS: BP 143/74
[2024-05-30] MEDS ORDERED: Docusate Sodium 100 MG Cap PO PRN (13:05)
[2024-05-30] MEDS ORDERED: Magnesium Hydroxide Conc 10 ML UDC PO PRN (13:05)
[2024-05-30] MEDS ORDERED: Potassium Chloride 20 MEQ TabCR PO ONE (16:00)
[2024-05-30] MEDS ORDERED: Heparin Sodium,Porcine 5,000 UNIT/0.5 ML SDV SC SCH ×2 (16:00→16:37)
[2024-05-30 16:30] VITALS: BP 129/73
[2024-05-30] MEDS ORDERED: Heparin Sodium 5000 Units/ML 1ML MDV SC SCH (17:00)
[2024-05-30] MEDS ORDERED: Albumin Human 50 ML IV SCH (18:00)
--- NOTE | 2024-05-30 18:36 | NUR ---
SHIFT SUMMARY: PT HAS BEEN ALERT, ORIENTED TO SELF, LOCATION, SITUATION. NO OBSERVATIONS OF VISUAL HALLUCINATIONS, BUT PT IS FORGETFUL/CONFUSED ESPECIALLY UPON WAKING, STATES SHE HASN'T BEEN SLEEPING WELL. PT HAS BEEN COOPERATIVE W/CARE, EASILY REDIRECTED. PT REPORTS IMPROVEMENT TO SOB, O2 SATS MAINTAINED >93% ON 6 L/MIN, FINE/DIMINISHED CRACKLES IN RLL. SR ON MONITOR, PT DENIES CP. PT IS RESPONDING WELL TO DIURETIC REGIMEN, VOIDING IN BSC, GOOD U.O. PT TO/FROM RECLINER TODAY W/SBA, TOLERATING WELL. AT THIS TIME, PT IS RESTING IN RECLINER, CALL LIGHT IN REACH.
[2024-05-30 20:00] VITALS: BP 134/77
[2024-05-30] MEDS ORDERED: Sennosides 8.6 MG Tab PO SCH (21:00)
--- NOTE | 2024-05-30 22:13 | NUR ---
THIS RN ASSUMED CARE OF PT AT 1900. PT IS ALERT AND ORIENTED TO ALL EXCEPT THE DATE, PT FOLLOWS COMMANDS IS A 1-2X ASSIST BACK TO BED, PT IS VERY WEAK, HIGH FALL RISK, BED ALARM IS ON AND NON-SLIP SOCKS ARE ON. PT HEART RATE IS IN THE 90s, CAN GET TO LOW 100s WITH ACTIVITY, BLOOD PRESSURE STABLE AT 134/77, PT DENIES SHORTNESS OF BREATH. PT SOUNDS CLEAR/DIMINISHED, ON 4-6L HIGH FLOW, CAN GO UP TO 6L WITH ACTIVITY, PT WAS SHORT OF BREATH AFTER GETTING BACK INTO BED BUT RECOVERED WELL. NO OTHER INTERVENTIONS AT THIS TIME, PLAN OF CARE CONTINUED.
[2024-05-31] VITALS (7 sets, daily range): BP systolic 130–142; BP diastolic 69–82
[2024-05-31 03:54] LABS: BASOPHILS ABSOLUTE AUTO 0.03 K/mm3 (0.00-0.23); BASOPHILS PERCENT AUTO 0 % (0-2); EOSINOPHILS ABSOLUTE AUTO 0.13 K/mm3 (0.00-0.68); EOSINOPHILS PERCENT AUTO 2 % (0-6); Hematocrit 24.7 % (33.0-51.0); Hemoglobin 8.3 g/dL (11.5-16.0); IMMATURE GRAN ABSOLUTE AUTO 0.13 K/mm3 (0.00-0.10); IMMATURE GRAN PERCENT AUTO 2 % (0-1); LYMPHOCYTES ABSOLUTE AUTO 0.62 K/mm3 (0.84-5.20); LYMPHOCYTES PERCENT AUTO 9 % (21-46); MONOCYTES ABSOLUTE AUTO 0.88 K/mm3 (0.16-1.47); MONOCYTES PERCENT AUTO 12 % (4-13); Mean Corpuscular HGB 29.4 pg (26.0-34.0); Mean Corpuscular HGB Conc 33.6 g/dL (31.5-36.5); Mean Corpuscular Volume 88 fL (80-100); NEUTROPHILS ABSOLUTE AUTO 5.48 K/mm3 (1.96-9.15); NEUTROPHILS PERCENT AUTO 75 % (41-73); Platelet Count 210 K/mm3 (150-400); RDW Coefficient Variation 14.4 % (11.7-14.2); RDW Standard Deviation 46.5 fL (35.1-46.3); Red Blood Cell Count 2.82 M/mm3 (3.80-5.20); White Blood Cell Count 7.27 K/mm3 (4.00-11.30)
[2024-05-31 04:13] LABS: Albumin, Blood 2.4 g/dL (3.4-5.0); Albumin/Globulin Ratio 0.7 (0.8-1.8); Bilirubin, Total 0.3 mg/dL (0.1-1.0); Bun/Creatinine Ratio 12.9 (12.0-20.0); Calcium, Blood 9.6 mg/dL (8.5-10.1); Creatinine, Blood 3.95 mg/dL (0.40-1.00); Globulin, Blood 3.5 g/dL (2.2-4.0); Potassium, Blood 4.3 mmol/L (3.5-5.5); Total Protein, Blood 5.9 g/dL (6.4-8.2)
--- NOTE | 2024-05-31 05:40 | NUR ---
PT SUMMARY PT IS SLEEPING PEACEFULLY IN BED. NO NEW ACUTE EVENTS TO REPORT OVERNIGHT. PT HAD SOME MOMENTS OF CONFUSION BUT WAS QUICKLY REORIENTED. PLAN OF CARE CONTINUED, STILL NO BLOOD IN URINE THROUGHOUT THE NIGHT.
[2024-05-31] MEDS ORDERED: Aspirin 81 MG Chew PO SCH (09:00)
[2024-05-31] MEDS ORDERED: Potassium Chloride 20 MEQ TabCR PO SCH (09:00)
[2024-05-31] MEDS ORDERED: NS 250 ML IV PRN (10:20)
--- NOTE | 2024-05-31 18:57 | NUR ---
SHIFT SUMMARY: NEURO: PATIENT ALERT THROUGHOUT THE SHIFT. PATIENT HAS SOME STML AT TIMES. PATIENT REDIRECTABLE. PATIENT WALKED IN THE BURRIS WITH PT. PATIENT UP IN THE ROOM TO THE BSC. PATIENT UP TO THE CHAIR FOR MUCH OF THE DAY. PATIENT DENIED NUMBNESS/TINGLING. RESPIRATORY: PATIENT ON ROOM AIR FROM MID-MORNING ON. PATIENT DENIED SHORTNESS OF BREATH OR DIFFICULTY BREATHING. BREATHS WERE EVEN AND REGULAR. SP02>92% ON ROOM AIR. PATIENT WALKED IN THE BURRIS WITH PT WITHOUT SHORTNESS OF BREATH. CARDIAC: PATIENTS VITALS STABLE WITH MAPS >65. HR IN THE 70S-90S. PATIENT DENIED CHEST PAIN OR DISCOMFORT. GI/: PATIENT VOIDING WITHOUT DIFFICULTY. PATIENT HAS URGENCY. PATIENT HAS A MODERATE APPETITE. PATIENT DENIES NAUSEA OR GASTRIC UPSET. PSYCHSOCIAL: PATIENT CALM AND COOPERATIVE THROUGOUT THE SHIFT. PATIENT'S SISTER AT BEDSIDE. THE PLAN IS FOR THE PATIENT TO DISCHARGE WITH THE SISITER FOR A FEW DAYS PER THEIR REPORT.
[2024-06-01 04:18] LABS: BASOPHILS ABSOLUTE AUTO 0.02 K/mm3 (0.00-0.23); BASOPHILS PERCENT AUTO 0 % (0-2); EOSINOPHILS ABSOLUTE AUTO 0.22 K/mm3 (0.00-0.68); EOSINOPHILS PERCENT AUTO 3 % (0-6); Hematocrit 24.8 % (33.0-51.0); Hemoglobin 8.2 g/dL (11.5-16.0); IMMATURE GRAN ABSOLUTE AUTO 0.18 K/mm3 (0.00-0.10); IMMATURE GRAN PERCENT AUTO 2 % (0-1); LYMPHOCYTES ABSOLUTE AUTO 0.84 K/mm3 (0.84-5.20); LYMPHOCYTES PERCENT AUTO 11 % (21-46); MONOCYTES ABSOLUTE AUTO 0.93 K/mm3 (0.16-1.47); MONOCYTES PERCENT AUTO 12 % (4-13); Mean Corpuscular HGB 29.7 pg (26.0-34.0); Mean Corpuscular HGB Conc 33.1 g/dL (31.5-36.5); Mean Corpuscular Volume 90 fL (80-100); Mean Platelet Volume 10.9 fL (9.1-12.4); NEUTROPHILS ABSOLUTE AUTO 5.31 K/mm3 (1.96-9.15); NEUTROPHILS PERCENT AUTO 71 % (41-73); Platelet Count 224 K/mm3 (150-400); RDW Coefficient Variation 14.6 % (11.7-14.2); RDW Standard Deviation 47.5 fL (35.1-46.3); Red Blood Cell Count 2.76 M/mm3 (3.80-5.20)
[2024-06-01 04:49] LABS: Albumin, Blood 2.5 g/dL (3.4-5.0); Albumin/Globulin Ratio 0.8 (0.8-1.8); Bilirubin, Total 0.3 mg/dL (0.1-1.0); Bun/Creatinine Ratio 13.9 (12.0-20.0); Calcium, Blood 9.4 mg/dL (8.5-10.1); Creatinine, Blood 3.38 mg/dL (0.40-1.00); Globulin, Blood 3.3 g/dL (2.2-4.0); Potassium, Blood 4.6 mmol/L (3.5-5.5); Total Protein, Blood 5.8 g/dL (6.4-8.2)
[2024-06-01 05:50] VITALS: BP 114/87
--- NOTE | 2024-06-01 05:52 | NUR ---
SHIFT SUMMARY PT AOX4. PT REMAINED SATURATING >92% ON RA OVERNIGHT. PT HAD NAUSEOUS EPISODE AT 0000, GAVE ZOFRAN, WHICH RESOLVED NAUSEA. PT HAD NO COMPLAINTS AND WAS COOPERATIVE IN CARE OVERNIGHT. NO ACUTE EVENTS OVERNIGHT.
[2024-06-01 07:38] VITALS: BP 123/71
[2024-06-01] MEDS ORDERED: Potassium Chloride 10 Meq Tablet SA PO SCH (09:00)
[2024-06-01] MEDS ORDERED: Torsemide 20 MG TAB PO SCH (09:00)
[2024-06-01 16:30] VITALS: BP 130/72
--- NOTE | 2024-06-01 17:13 | NUR ---
SHIFT SUMMARY: PT HAS BEEN ALERT, ORIENTED TO SELF, LOCATION, SITUATION. PT HAS BEEN COOPERATIVE W/CARE, ABLE TO MAKE NEEDS KNOWN. O2 SATS MAINTAINED >92% ON RA, PT DENIES SOB. SR ON MONITOR, PT DENIES CHEST PAIN/PRESSURE. PT SBA TO BSC, ATTENDS IN PLACE FOR URGENCY. PT FEEDING SELF, SAT IN RECLINER A GOOD PORTION OF THE DAY. POTENTIAL DISCHARGE TOMORROW. PT RESTING IN BED AT THIS TIME, CALL LIGHT IN REACH.
[2024-06-01 20:16] VITALS: BP 149/79
[2024-06-02 04:40] VITALS: BP 135/77
--- NOTE | 2024-06-02 04:53 | NUR ---
SHIFT SUMMARY. SHIFT HAS BEEN UNREMARKABLE. PT AOX2-3, COOPERATIVE, ABLE TO MAKE NEEDS KNOWN. MENTATION HAS SOMEWHAT FLUCTUATED THROUGHOUT SHIFT BUT PT REMAINS PLEASANT, DIRECTABLE, ABLE TO MAKE NEEDS KNOWN. HAS BEEN ABLE TO REST COMFORTABLY THROUGHOUT MOST OF SHIFT. HAS DENIED PAIN. VITALS HAVE BEEN STABLE. BED LOCKED IN LOWEST POSITIION. CALL LGIHT LEFT WITHIN REACH. CONTINUING TO MONITOR.
[2024-06-02 06:55] LABS: Albumin, Blood 2.4 g/dL (3.4-5.0); Albumin/Globulin Ratio 0.7 (0.8-1.8); Bilirubin, Total 0.2 mg/dL (0.1-1.0); Bun/Creatinine Ratio 19.6 (12.0-20.0); Calcium, Blood 9.4 mg/dL (8.5-10.1); Creatinine, Blood 3.01 mg/dL (0.40-1.00); Globulin, Blood 3.6 g/dL (2.2-4.0); Potassium, Blood 4.6 mmol/L (3.5-5.5)
[2024-06-02 07:53] LABS: BASOPHILS ABSOLUTE AUTO 0.03 K/mm3 (0.00-0.23); BASOPHILS PERCENT AUTO 0 % (0-2); EOSINOPHILS ABSOLUTE AUTO 0.24 K/mm3 (0.00-0.68); EOSINOPHILS PERCENT AUTO 3 % (0-6); Hematocrit 23.9 % (33.0-51.0); IMMATURE GRAN ABSOLUTE AUTO 0.24 K/mm3 (0.00-0.10); IMMATURE GRAN PERCENT AUTO 3 % (0-1); LYMPHOCYTES PERCENT AUTO 10 % (21-46); MONOCYTES ABSOLUTE AUTO 0.72 K/mm3 (0.16-1.47); MONOCYTES PERCENT AUTO 9 % (4-13); Mean Corpuscular HGB Conc 33.5 g/dL (31.5-36.5); Mean Corpuscular Volume 90 fL (80-100); Mean Platelet Volume 11.2 fL (9.1-12.4); NEUTROPHILS ABSOLUTE AUTO 5.84 K/mm3 (1.96-9.15); NEUTROPHILS PERCENT AUTO 74 % (41-73); Platelet Count 236 K/mm3 (150-400); RDW Coefficient Variation 14.5 % (11.7-14.2); RDW Standard Deviation 46.7 fL (35.1-46.3); Red Blood Cell Count 2.67 M/mm3 (3.80-5.20); White Blood Cell Count 7.87 K/mm3 (4.00-11.30)
[2024-06-02 08:48] VITALS: BP 128/67
[2024-06-02 17:21] VITALS: BP 122/72
--- NOTE | 2024-06-02 18:40 | NUR ---
SHIFT SUMMERY: NO ACUTE CHANGES OR SIGNIFICANT EVENTS HAPPENED DURING THIS SHIFT. PT REMAINED FREE OF ANY CP OR SOB. PT DID REPORT SOME NAUSEA THIS AM AND SLIGHT DIZZINESS WITH AMBULATION THIS EVENING. PLAN TO DC TO HOME TOMORROW WITH HOME HEALTH. WILL CONTINUE TO CARE FOR PT TILL END OF SHIFT.
[2024-06-02 19:39] VITALS: BP 116/87
[2024-06-03] VITALS (16 sets, daily range): BP systolic 102–1102; BP diastolic 58–92
[2024-06-03 04:25] LABS: BASOPHILS ABSOLUTE AUTO 0.03 K/mm3 (0.00-0.23); BASOPHILS PERCENT AUTO 0 % (0-2); EOSINOPHILS ABSOLUTE AUTO 0.25 K/mm3 (0.00-0.68); EOSINOPHILS PERCENT AUTO 2 % (0-6); Hematocrit 18.9 % (33.0-51.0); Hemoglobin 6.3 g/dL (11.5-16.0); IMMATURE GRAN ABSOLUTE AUTO 0.56 K/mm3 (0.00-0.10); IMMATURE GRAN PERCENT AUTO 5 % (0-1); LYMPHOCYTES ABSOLUTE AUTO 1.27 K/mm3 (0.84-5.20); LYMPHOCYTES PERCENT AUTO 11 % (21-46); MONOCYTES ABSOLUTE AUTO 1.04 K/mm3 (0.16-1.47); MONOCYTES PERCENT AUTO 9 % (4-13); Mean Corpuscular HGB 30.3 pg (26.0-34.0); Mean Corpuscular HGB Conc 33.3 g/dL (31.5-36.5); Mean Corpuscular Volume 91 fL (80-100); Mean Platelet Volume 10.7 fL (9.1-12.4); NEUTROPHILS ABSOLUTE AUTO 8.34 K/mm3 (1.96-9.15); NEUTROPHILS PERCENT AUTO 72 % (41-73); NRBC ABSOLUTE 0.03 K/mm3 (0.00-0.02); NRBC Auto 0.3 /100 WBC (0.0-0.2); Platelet Count 262 K/mm3 (150-400); RDW Coefficient Variation 14.5 % (11.7-14.2); RDW Standard Deviation 47.1 fL (35.1-46.3); Red Blood Cell Count 2.08 M/mm3 (3.80-5.20); White Blood Cell Count 11.49 K/mm3 (4.00-11.30)
[2024-06-03 04:46] LABS: Albumin, Blood 2.3 g/dL (3.4-5.0); Albumin/Globulin Ratio 0.7 (0.8-1.8); Bilirubin, Total 0.2 mg/dL (0.1-1.0); Bun/Creatinine Ratio 32.8 (12.0-20.0); Calcium, Blood 9.3 mg/dL (8.5-10.1); Creatinine, Blood 3.02 mg/dL (0.40-1.00); Globulin, Blood 3.2 g/dL (2.2-4.0); Potassium, Blood 5.2 mmol/L (3.5-5.5); Total Protein, Blood 5.5 g/dL (6.4-8.2)
[2024-06-03] MEDS ORDERED: NS 500 ML IV SCH (05:50)
--- NOTE | 2024-06-03 06:08 | NUR ---
SHIFT SUMMARY. PT HAS OVERALL DONE WELL THROUGHOUT SHIFT. MOSTLY ORIENTED ALTHOUGH AT TIMES MORE CONFUSED THAN OTHERS, REMAINS PLEASANT, DIRECTABLE, COOPERATIVE. HAS BEEN ABLE TO REST COMFORTABLY THROUGHOUT MOST OF SHIFT. VITALS HAVE BEEN STABLE. PT HAS DENIED PAIN OUTSIDE OF 2/10 HEADACHE THIS MORNING WHICH WAS ALLEVIATED WITH 500 MG TYLENOL. ON MORNING LABS, HGB CAME BACK AT 6.3. NO OBVIOUS SIGNS OF BLEEDING, NO EVIDENCE OF BLOOD LOSS OR OTHER NOTED ACUTE CHANGES. SPOKE WITH DR. ELLER WHO ORDERED 1 UNIT PRBCs, STAT ABD CT. IMAGING COMPLETE, AWAITING RESULTS. TYPE AND SCREEN SENT TO LAB. NOT YET RECEIVED RESULTS OR BLOOD PRODUCTS. PT DENIES FEELING ANY CHANGES. OTHERWISE SHIFT HAS GONE WELL. BED LOCKED IN LOWEST POSITION. CALL LIGHT LEFT WITHIN REACH. CONTINUING TO MONITOR.
[2024-06-03 06:09] LABS: Hematocrit 19.5 % (33.0-51.0); Hemoglobin 6.4 g/dL (11.5-16.0)
[2024-06-03] MEDS ORDERED: Polyethylene Glycol 3350 17 gm PO PRN (09:10)
[2024-06-03 15:50] LABS: Hematocrit 23.6 % (33.0-51.0); Hemoglobin 8.2 g/dL (11.5-16.0); IMMATURE RETIC FRACTION 37.9 % (2.3-16.0); RETIC HGB EQUIVALENT 35.2 pg (28.20-36.60); RETICULOCYTE ABSOLUTE 0.098 M/mm3 (0.0200-0.1100); RETICULOCYTE COUNT PERCENT 3.83 % (0.50-2.50)
[2024-06-03] MEDS ORDERED: Lactated Ringer's 500 ML IV SCH (18:20)
--- NOTE | 2024-06-03 18:47 | NUR ---
SHIFT SUMMERY: NEURO: NO ACUTE CHANGES. CARDIAC: PT REPORTED FEELING DIZZY WITH MOVEMENT OR ACTIVITY. ORTHOSTATIC VITALS WERE OBTAINED. PROVIDER NOTIFIED. PT RECIEVED A UNIT OF BLOOD THIS AFTERNOON AND HER LAST HGB HAS INCREASED. RESP: PT REPORTS FEELING LIKE SHE IS NEEDS TO TAKE A DEEP BREATH WHEN SHE IS LAYING DOWN. ALTHOUGH DENIES ANY SOB. O2 SATS 100% RA. LUNG SOUNDS CLEAR. GI/: PT HAD MULTIPLE BOWEL MOVEMENTS TODAY. HE LAST BM APPEARED DARK IN COLOR AND HAD WHAT APPEARED TO BE BLOOD SPOTS IN IT. RESIDENT CALLED. NO FURTHR ORDERS WERE GIVEN. THIS RN CALLED DR SUTTON THIS EVENING REGARDING PTS ORTHOS AND WAS INFORMED ABOUT DARK BOWEL MOVEMENT. ORDERS OBTAINED. PT IS TO BE NPO AFTER MIDNIGHT. VSS THROUGHOUT SHIFT. NO COMPLAINTS OF CP. NO OTHER SIGNIFICANT EVENTS HAPPENED DURING THIS SHIFT. WILL CONTINUE TO CARE FOR PT TILL END OF SHIFT.
[2024-06-03] MEDS ORDERED: Pantoprazole Sodium 40 MG Injection IV SCH (19:00)
[2024-06-03 20:47] LABS: Hematocrit 19.8 % (33.0-51.0); Hemoglobin 6.8 g/dL (11.5-16.0)
[2024-06-03] MEDS ORDERED: GuaiFENesin 600 MG TabCR PO ONE (21:25)
[2024-06-04] VITALS (17 sets, daily range): BP systolic 95–150; BP diastolic 54–85
[2024-06-04 02:42] LABS: Hematocrit 22.4 % (33.0-51.0); Hemoglobin 7.6 g/dL (11.5-16.0)
[2024-06-04 05:26] LABS: BASOPHILS ABSOLUTE AUTO 0.04 K/mm3 (0.00-0.23); BASOPHILS PERCENT AUTO 0 % (0-2); EOSINOPHILS ABSOLUTE AUTO 0.19 K/mm3 (0.00-0.68); EOSINOPHILS PERCENT AUTO 2 % (0-6); Hematocrit 22.6 % (33.0-51.0); Hemoglobin 7.7 g/dL (11.5-16.0); IMMATURE GRAN ABSOLUTE AUTO 0.57 K/mm3 (0.00-0.10); IMMATURE GRAN PERCENT AUTO 5 % (0-1); LYMPHOCYTES ABSOLUTE AUTO 0.75 K/mm3 (0.84-5.20); LYMPHOCYTES PERCENT AUTO 6 % (21-46); MONOCYTES ABSOLUTE AUTO 1.15 K/mm3 (0.16-1.47); MONOCYTES PERCENT AUTO 10 % (4-13); Mean Corpuscular HGB Conc 34.1 g/dL (31.5-36.5); Mean Corpuscular Volume 91 fL (80-100); Mean Platelet Volume 11.3 fL (9.1-12.4); NEUTROPHILS ABSOLUTE AUTO 9.18 K/mm3 (1.96-9.15); NEUTROPHILS PERCENT AUTO 77 % (41-73); NRBC ABSOLUTE 0.09 K/mm3 (0.00-0.02); NRBC Auto 0.8 /100 WBC (0.0-0.2); Platelet Count 207 K/mm3 (150-400); RDW Coefficient Variation 14.4 % (11.7-14.2); RDW Standard Deviation 45.9 fL (35.1-46.3); Red Blood Cell Count 2.48 M/mm3 (3.80-5.20); White Blood Cell Count 11.88 K/mm3 (4.00-11.30)
--- NOTE | 2024-06-04 05:44 | NUR ---
SHIFT SUMMARY. SHIFT HAS GONE WELL OVERALL. PT HAD LOW HGB LAST NIGHT <7, SPOKE WITH DR. ELLER AND TRANSFUSED ONE UNIT OF BLOOD AFTER WHICH TIME HGB CAME UP TO 7.8. PT TOLERATED WELL AND VITALS SIGNS REMAINED STABLE. PT COMPLAINING OF CONGESTED COUGH THROUGHOUT SHIFT WITH SENSATION OF BEING UNABLE TO TAKE VERY DEEP INSPIRATION DESPITE O2 SATS REMAINING >95% ON ROOM AIR AND LUNG SOUNDS REMAINING CLEAR THROUGHOUT SHIFT. NOTIFIED DR. ELLER WHO ORDERED MUCINEX FOR MANAGEMENT. PT COMPLAINED ON MORNING VITALS OF FEELING LIGHTHEADED/DIZZY ON SITTING OR STANDING UP. PERFORMED ORTHOSTATIC VITAL SIGNS WHICH SHOWED NO MEANINGFUL DROP IN BP, NOTIFIED DR. ELLER WHO INFORMED SHE WOULD PASS ALONG TO DAY SHIFT TEAM. OTHERWISE SHIFT HAS GONE WELL. PT HAS CONTINUED TO DENY PAIN. VITALS HAVE REMAINED STABLE. PT CALLS APPROPRIATELY, IS COOPERATIVE WITH CARE, AND IS VERY DIRECTABLE. PT HAS BEEN SOMEWHAT ANXIOUS THROUGHOUT MUCH OF SHIFT BUT HAS BEEN ABLE TO REST COMFORTABLY FOR THE MOST PART. HAS BEEN NPO SINCE MIDNIGHT OUTSIDE OF SOME WATER WITH PILLS THIS MORNING. PT HAD 2 BMs THIS SHIFT, THE ONE THAT THIS RN WITNESSED WAS OF JELLY CONSISTENCY AND VERY DARK. OTHERWISE SHIFT HAS GONE WELL. BED LOCKED IN LOWEST POSITION. CALL LIGHT LEFT WITHIN REACH. CONTINUING TO MONITOR.
[2024-06-04 06:27] LABS: Albumin, Blood 2.2 g/dL (3.4-5.0); Albumin/Globulin Ratio 0.8 (0.8-1.8); Bilirubin, Total 0.5 mg/dL (0.1-1.0); Calcium, Blood 8.8 mg/dL (8.5-10.1); Creatinine, Blood 2.95 mg/dL (0.40-1.00); Globulin, Blood 2.9 g/dL (2.2-4.0); Potassium, Blood 4.7 mmol/L (3.5-5.5); Total Protein, Blood 5.1 g/dL (6.4-8.2)
[2024-06-04 08:33] LABS: Stool Occult Blood Guaiac 1 Pos (Neg)
[2024-06-04] MEDS ORDERED: Pantoprazole Sodium 40 MG in NS 50 ML IV SCH (08:45)
[2024-06-04] MEDS ORDERED: Pantoprazole Sodium 40 MG Injection IV ONE ×2 (09:00→12:10)
[2024-06-04] MEDS ORDERED: Melatonin 5 MG Tablet PO PRN (11:45)
[2024-06-04 12:18] LABS: Adenovirus Not Detected (NOT DETECT); Bordetella pertussis Not Detected (NOT DETECT); Chlamydophila pneumoniae Not Detected (NOT DETECT); Coronavirus 229E Not Detected (NOT DETECT); Coronavirus HKU1 Not Detected (NOT DETECT); Coronavirus NL63 Not Detected (NOT DETECT); Coronavirus OC43 Not Detected (NOT DETECT); Human Metapneumovirus Not Detected (NOT DETECT); Human Rhinovirus/Enterovirus Not Detected (NOT DETECT); Influenza A/2009-H1 Not Detected (NOT DETECT); Influenza A/H1 Not Detected (NOT DETECT); Influenza A/H3 Detected (NOT DETECT); Influenza B Not Detected (NOT DETECT); Mycoplasma pneumoniae Not Detected (NOT DETECT); Parainfluenza Virus 1 Not Detected (NOT DETECT); Parainfluenza Virus 2 Not Detected (NOT DETECT); Parainfluenza Virus 3 Not Detected (NOT DETECT); Parainfluenza Virus 4 Not Detected (NOT DETECT); Respiratory Syncytial Virus Not Detected (NOT DETECT); SARS-Cov-2 (COVID-19), BioFire Not Detected (NOT DETECT)
[2024-06-04] MEDS ORDERED: Oseltamvir Phosphate 30 MG Cap PO SCH (14:00)
[2024-06-04 15:22] LABS: BASOPHILS ABSOLUTE AUTO 0.05 K/mm3 (0.00-0.23); BASOPHILS PERCENT AUTO 1 % (0-2); EOSINOPHILS ABSOLUTE AUTO 0.13 K/mm3 (0.00-0.68); EOSINOPHILS PERCENT AUTO 1 % (0-6); Hematocrit 27.8 % (33.0-51.0); Hemoglobin 9.6 g/dL (11.5-16.0); IMMATURE GRAN ABSOLUTE AUTO 0.37 K/mm3 (0.00-0.10); IMMATURE GRAN PERCENT AUTO 4 % (0-1); LYMPHOCYTES ABSOLUTE AUTO 0.75 K/mm3 (0.84-5.20); LYMPHOCYTES PERCENT AUTO 7 % (21-46); MONOCYTES ABSOLUTE AUTO 1.18 K/mm3 (0.16-1.47); MONOCYTES PERCENT AUTO 11 % (4-13); Mean Corpuscular HGB 31.4 pg (26.0-34.0); Mean Corpuscular HGB Conc 34.5 g/dL (31.5-36.5); Mean Corpuscular Volume 91 fL (80-100); Mean Platelet Volume 11.1 fL (9.1-12.4); NEUTROPHILS ABSOLUTE AUTO 7.96 K/mm3 (1.96-9.15); NEUTROPHILS PERCENT AUTO 76 % (41-73); NRBC ABSOLUTE 0.13 K/mm3 (0.00-0.02); NRBC Auto 1.2 /100 WBC (0.0-0.2); Platelet Count 204 K/mm3 (150-400); RDW Coefficient Variation 14.7 % (11.7-14.2); RDW Standard Deviation 47.3 fL (35.1-46.3); Red Blood Cell Count 3.06 M/mm3 (3.80-5.20); White Blood Cell Count 10.44 K/mm3 (4.00-11.30)
--- NOTE | 2024-06-04 18:44 | NUR ---
JERED SUMMARY: NEURO: NO ACUTE CHANGES CARDIAC: NO ACUTE CHANGES RESP: PTS COUGH PROGRESSED OVER THE MORNING. A PCR WAS SENT TO LAB AND CAME BACK POSITIVE FOR INFULENZA A. PT PLACED ON DROPLET PRECAUTIONS. PT REMAINED 100% ON RA. DEVELOPED WHEEZING IN HER RLL THIS AFTERNOON. DENIES ANY INCREASE OF SOB. STARTED ON TAMIFLU. GI/: PT STARTED ON PROTONIX THIS AM AND CONTINUES TO INFUSE. PT WILL BE NPO AFTER MIDNIGHT FOR SCOPE TOMORROW SINCE HEMACOLT CAME BACK POSITIVE THIS AM. CONTINUES TO HAVE BLACK TARRY STOOLS. PT RECIEVED ANOTHER UNIT OF BLOOD TODAY. NO OTHER SIGNIFICANT EVENTS HAPPENED DURING THIS SHIFT. WILL CONTINUE TO CARE FOR PT TILL END OF SHIFT.
[2024-06-05] VITALS (7 sets, daily range): BP systolic 121–177; BP diastolic 72–82
[2024-06-05 04:46] LABS: BASOPHILS ABSOLUTE AUTO 0.05 K/mm3 (0.00-0.23); BASOPHILS PERCENT AUTO 1 % (0-2); EOSINOPHILS ABSOLUTE AUTO 0.14 K/mm3 (0.00-0.68); EOSINOPHILS PERCENT AUTO 2 % (0-6); Hematocrit 25.7 % (33.0-51.0); Hemoglobin 8.9 g/dL (11.5-16.0); IMMATURE GRAN ABSOLUTE AUTO 0.26 K/mm3 (0.00-0.10); IMMATURE GRAN PERCENT AUTO 4 % (0-1); LYMPHOCYTES ABSOLUTE AUTO 0.71 K/mm3 (0.84-5.20); LYMPHOCYTES PERCENT AUTO 10 % (21-46); MONOCYTES ABSOLUTE AUTO 0.81 K/mm3 (0.16-1.47); MONOCYTES PERCENT AUTO 11 % (4-13); Mean Corpuscular HGB 31.6 pg (26.0-34.0); Mean Corpuscular HGB Conc 34.6 g/dL (31.5-36.5); Mean Corpuscular Volume 91 fL (80-100); Mean Platelet Volume 11.2 fL (9.1-12.4); NEUTROPHILS ABSOLUTE AUTO 5.17 K/mm3 (1.96-9.15); NEUTROPHILS PERCENT AUTO 73 % (41-73); NRBC ABSOLUTE 0.05 K/mm3 (0.00-0.02); NRBC Auto 0.7 /100 WBC (0.0-0.2); Platelet Count 206 K/mm3 (150-400); RDW Coefficient Variation 15.3 % (11.7-14.2); RDW Standard Deviation 48.7 fL (35.1-46.3); Red Blood Cell Count 2.82 M/mm3 (3.80-5.20); White Blood Cell Count 7.14 K/mm3 (4.00-11.30)
[2024-06-05 05:09] LABS: Albumin, Blood 2.5 g/dL (3.4-5.0); Anion Gap 12 mmol/L (3-11); Blood Urea Nitrogen 100 mg/dL (8-24); Bun/Creatinine Ratio 30.9 (12.0-20.0); CO2, Blood 23 mmol/L (21-32); Chloride, Blood 107 mmol/L (98-108); Creatinine, Blood 3.24 mg/dL (0.40-1.00); Glomerular Filtration Rate 14 (60-); Glucose, Blood 93 mg/dL (70-99); Phosphorus, Blood 3.2 mg/dL (2.5-4.9); Potassium, Blood 4.3 mmol/L (3.5-5.5); Sodium, Blood 138 mmol/L (136-145)
--- NOTE | 2024-06-05 08:30 | NUR ---
Bland of care: Resting in bed, alert & oriented. Does complain of some dizziness at rest. Neuro exam WNL. Vital signs stable on room air. No cardiac complaints. PIV x2. NPO for potential EGD today. Will continue to monitor.
[2024-06-05] MEDS ORDERED: Lactated Ringer's 250 ML IV SCH (12:10)
--- NOTE | 2024-06-05 16:05 | NUR ---
History, Chart, Medications and Allergies reviewed before start of procedure. Pre-Op teaching done. Pt verbalizes understanding. PT BELONGINGS LEFT IN PT PCU ROOM. PT PLACED IN DROPLET PRECAUTIONS D/T BEING FLU POSITIVE.
[2024-06-05] MEDS ORDERED: propofoL 0 ML IV ONE (16:06)
[2024-06-05] MEDS ORDERED: Lidocaine HCl 2% 10 ML SDA ONE (16:07)
[2024-06-05] MEDS ORDERED: Lactated Ringer's 1,000 ML IV SCH (16:10)
--- NOTE | 2024-06-05 16:24 | NUR ---
06/05/24 1624 Santy Morrison MONITOR INTACT WITH CONTINUOUS PULSE OXIMETRY, CONTINUOUS END TITAL CO2, AND INTERMITTENT BLOOD PRESSURE. History, Chart, Medications and Allergies reviewed before start of procedure. 3-LEAD EKG REVIEWED WITH PHYSICIAN PRIOR TO START OF PROCEDURE. O2 VIA POM INTACT THROUGHOUT SEDATION/PROCEDURE. Bite Block Placed AT BEGINNING OF PROCEDURE.
[2024-06-05] MEDS ORDERED: propofoL 20 ML IV ONE (16:30)
[2024-06-05] MEDS ORDERED: Melatonin 5 MG Tablet PO PRN (17:25)
--- NOTE | 2024-06-05 17:26 | NUR ---
Shift summary: Remains A & O, no complaints of pain, intermittent dizziness, MD aware. Vital signs stable on room air. Up to commode. LR infusing at 30cc/hr per MD order. Returned from endo suite where EGD was performed by Dr. Dillard. She is stable & will continue to monitor.
[2024-06-05 19:52] LABS: HAPTOGLOBIN 226 mg/dL (30-200)
[2024-06-05] MEDS ORDERED: Metoprolol Tartrate 25 MG Tab PO SCH (21:00)
[2024-06-05 22:12] LABS: Hematocrit 27.6 % (33.0-51.0); Hemoglobin 9.3 g/dL (11.5-16.0)
[2024-06-06 01:14] VITALS: BP 113/60
[2024-06-06 04:00] VITALS: BP 143/67
[2024-06-06] MEDS ORDERED: Pantoprazole Sodium 40 MG Tab PO SCH (06:00)
--- NOTE | 2024-06-06 06:27 | NUR ---
SHIFT SUMMARY: PT IS A&OX4, FORGETFUL AT TIMES, BUT PLEASANT AND COOPERATIVE WITH CARE. VSS ON RA. PLACED PT ON 2L NC WHILE ASLEEP D/T DESATTING INTO THE MID 80'S ON RA. C/O DISCOMFORT IN HER ABD. DENIES THE NEED FOR PAIN MEDICATIONS. C/O FEELING DIZZY ONE TIME WHILE UP TO BSC. TOLERATING A CONS CARB DIET WITH GOOD APPETITE. SBA INTO BR USING HER 4WW. VOIDING ADEQUATE AMOUNTS OF CLOUDY, YELLOW URINE. NO BM THIS SHIFT. BED IN LOWEST POSITION, CALL LIGHT WITHIN REACH. BED ALARM SET FOR PT'S SAFETY. DROPLET PRECAUTIONS MAINTAINED FOR FLU.
[2024-06-06 07:48] VITALS: BP 115/67
[2024-06-06 08:15] LABS: BASOPHILS ABSOLUTE AUTO 0.02 K/mm3 (0.00-0.23); BASOPHILS PERCENT AUTO 0 % (0-2); EOSINOPHILS ABSOLUTE AUTO 0.09 K/mm3 (0.00-0.68); EOSINOPHILS PERCENT AUTO 2 % (0-6); Hematocrit 25.5 % (33.0-51.0); Hemoglobin 8.4 g/dL (11.5-16.0); Mean Corpuscular HGB 31.5 pg (26.0-34.0); Mean Corpuscular HGB Conc 32.9 g/dL (31.5-36.5); Mean Platelet Volume 10.9 fL (9.1-12.4); Platelet Count 187 K/mm3 (150-400); RDW Coefficient Variation 15.9 % (11.7-14.2); Red Blood Cell Count 2.67 M/mm3 (3.80-5.20); White Blood Cell Count 4.79 K/mm3 (4.00-11.30)
[2024-06-06 08:18] LABS: Albumin, Blood 2.3 g/dL (3.4-5.0); Albumin/Globulin Ratio 0.8 (0.8-1.8); Bilirubin, Total 0.3 mg/dL (0.1-1.0); Calcium, Blood 8.7 mg/dL (8.5-10.1); Creatinine, Blood 2.97 mg/dL (0.40-1.00); Globulin, Blood 2.9 g/dL (2.2-4.0); Potassium, Blood 4.4 mmol/L (3.5-5.5); Total Protein, Blood 5.2 g/dL (6.4-8.2)
[2024-06-06 08:24] LABS: IMMATURE GRAN ABSOLUTE AUTO 0.08 K/mm3 (0.00-0.10); IMMATURE GRAN PERCENT AUTO 2 % (0-1); LYMPHOCYTES ABSOLUTE AUTO 0.74 K/mm3 (0.84-5.20); LYMPHOCYTES PERCENT AUTO 15 % (21-46); MONOCYTES ABSOLUTE AUTO 0.58 K/mm3 (0.16-1.47); MONOCYTES PERCENT AUTO 12 % (4-13); Mean Corpuscular Volume 96 fL (80-100); NEUTROPHILS ABSOLUTE AUTO 3.28 K/mm3 (1.96-9.15); NEUTROPHILS PERCENT AUTO 69 % (41-73)
[2024-06-06 08:47] LABS: BASOPHILS ABSOLUTE MAN 0.09 K/mm3 (0.00-0.23); BASOPHILS PERCENT MAN 2 % (0-2); EOSINOPHILS PERCENT MAN 0 % (0-6); LYMPHOCYTES % ATYPICAL MANUAL 1 % (0-0); LYMPHOCYTES ABSOLUTE MAN 0.62 K/mm3 (0.84-5.20); LYMPHOCYTES PERCENT MAN 12 % (21-46); MONOCYTES ABSOLUTE MAN 0.67 K/mm3 (0.16-1.47); MONOCYTES PERCENT MAN 14 % (4-13); SEG NEUTROPHILS PERCENT MAN 71 % (41-73); TOTAL CELLS COUNTED 100
[2024-06-06] MEDS ORDERED: AmLODIPine Besylate 5 MG Tab PO SCH (09:00)
[2024-06-06] MEDS ORDERED: Aspirin 81 MG Chew PO SCH (09:00)
[2024-06-06] MEDS ORDERED: Oseltamvir Phosphate 30 MG Cap PO SCH ×2 (10:37→14:00)
[2024-06-06 11:28] VITALS: BP 115/61
[2024-06-06 13:42] LABS: Source, Urine Clean Catch
[2024-06-06 13:53] LABS: Appearance, Urine Hazy (Clear); Bilirubin, Urine Neg (Neg); Blood, Urine 3+ (Neg); Color, Urine Yellow (P-Yellow); Glucose Qualitative, Urine Neg (Neg); Ketones, Urine Neg (Neg); Leukocyte Esterase, Urine 3+ (Neg); Nitrite, Urine Neg (Neg); Protein, Urine 4+ (Neg); Specific Gravity, Urine 1.015 (1.003-1.022); Urobilinogen, Urine NORM (Normal)
[2024-06-06 14:03] LABS: White Blood Cells, Urine TNTC /hpf (0-5); Yeast/Fungi Urine Mod /hpf
[2024-06-06 14:04] LABS: Bacteria Mod /hpf; Squamous Epithelial Cells Mod /hpf (Few)
[2024-06-06 16:01] VITALS: BP 142/73
--- NOTE | 2024-06-06 17:42 | NUR ---
SHIFT SUMMARY PT A&O X4, OBEYS COMMANDS, REPOSTINING SELF IN BED, ABLE TO WALK TO BATHROOM SBA WITH FWW. CONTINUOUS SPO2, SPO2 GREATER THAN 90% ON RA, OCCATIONAL DESATUATION INTO THE 80 S WHILE SLEEPING BUT QUICKLY RECOVERS, LUNGS SOUND CLEAR T/O, HAVING A NONPRODUCTIVE COUGH. CONTINUOUS TELE MONITORING, HR 60-70 S SINUS RHYTHM, BP STABLE WITH MAP GREATER THAN 65, MURMUR PRESENT, CAP REFILL LESS THAN 3S, STRONG PULSES PRESENT T/O. BOWEL TONES PRESENT IN ALL 4Q, PT REPORTING FEELINGS OF CONSTIPATION, ABD SOFT AND NON-TENDER. MULTIPLE BRUISES T/O AT DIFFERENT STAGES OF HEALING, RIGHT FLANK BRUSING WITH SIGNS OF HEALING.
[2024-06-06 20:46] VITALS: BP 156/76
[2024-06-07 00:08] VITALS: BP 109/58
[2024-06-07 04:34] VITALS: BP 138/75
[2024-06-07 04:46] LABS: Hematocrit 25.8 % (33.0-51.0); Hemoglobin 8.6 g/dL (11.5-16.0); Mean Corpuscular HGB 31.2 pg (26.0-34.0); Mean Corpuscular HGB Conc 33.3 g/dL (31.5-36.5); Mean Corpuscular Volume 94 fL (80-100); Mean Platelet Volume 10.7 fL (9.1-12.4); Platelet Count 185 K/mm3 (150-400); RDW Coefficient Variation 15.7 % (11.7-14.2); RDW Standard Deviation 50.5 fL (35.1-46.3); Red Blood Cell Count 2.76 M/mm3 (3.80-5.20); White Blood Cell Count 4.56 K/mm3 (4.00-11.30)
[2024-06-07 04:56] LABS: Albumin, Blood 2.4 g/dL (3.4-5.0); Albumin/Globulin Ratio 0.8 (0.8-1.8); Bilirubin, Total 0.3 mg/dL (0.1-1.0); Bun/Creatinine Ratio 24.7 (12.0-20.0); Calcium, Blood 8.5 mg/dL (8.5-10.1); Creatinine, Blood 2.96 mg/dL (0.40-1.00); Potassium, Blood 4.2 mmol/L (3.5-5.5); Total Protein, Blood 5.4 g/dL (6.4-8.2)
[2024-06-07 05:47] LABS: BASOPHILS ABSOLUTE MAN 0.09 K/mm3 (0.00-0.23); BASOPHILS PERCENT MAN 2 % (0-2); EOSINOPHILS ABSOLUTE MAN 0.09 K/mm3 (0.00-0.68); EOSINOPHILS PERCENT MAN 2 % (0-6); LYMPHOCYTES % ATYPICAL MANUAL 2 % (0-0); LYMPHOCYTES ABSOLUTE MAN 0.72 K/mm3 (0.84-5.20); LYMPHOCYTES PERCENT MAN 14 % (21-46); MONOCYTES ABSOLUTE MAN 0.54 K/mm3 (0.16-1.47); MONOCYTES PERCENT MAN 12 % (4-13); SEG NEUTROPHILS PERCENT MAN 68 % (41-73); TOTAL CELLS COUNTED 100
--- NOTE | 2024-06-07 06:25 | NUR ---
SHIFT SUMMARY: PT IS A&OX4, FORGETFUL AT TIMES, BUT PLEASANT AND COOPERATIVE WITH CARE. VSS ON RA. PT C/O PAIN IN HER RIGHT SIDE LOW BACK FROM THE BIOPSY SITE, MEDICATED WITH PRN TYELNOL. TOLERATING A CONS CARB DIET WITH GOOD APPETITE. SBA INTO BR USING HER 4WW. VOIDING ADEQUATE AMOUNTS OF CLOUDY, YELLOW URINE. X1 VERY SMALL BM THIS SHIFT. BED IN LOWEST POSITION, CALL LIGHT WITHIN REACH. BED ALARM SET FOR PT'S SAFETY. DROPLET PRECAUTIONS MAINTAINED FOR FLU.
[2024-06-07 08:25] VITALS: BP 157/76
[2024-06-07] MEDS ORDERED: Oseltamvir Phosphate 30 MG Cap PO SCH (09:00)
[2024-06-07 11:25] VITALS: BP 114/63
[2024-06-07] MEDS ORDERED: OSEL75CA PO (14:21)
[2024-06-07] MEDS ORDERED: ASPI81CH PO (14:29)
[2024-06-07] MEDS ORDERED: Imdur30 MG PO (15:29)
[2024-06-07] MEDS ORDERED: FERSU300 PO (15:33)
[2024-06-07] MEDS ORDERED: KLOR-CON M1010 MEQ PO (15:33)
[2024-06-07] MEDS ORDERED: METO25 PO (15:34)
[2024-06-07] MEDS ORDERED: MELATONIN5 M1 (15:35)
[2024-06-07] MEDS ORDERED: PANT40 PO (15:43)
[2024-06-07] MEDS ORDERED: LEVFLO500 PO (15:45)
--- NOTE | 2024-06-07 16:43 | NUR ---
DISCHARGE SUMMARY @ [facility] 1611 PT A&O X4, OBEYS COMMANDS, REPOSTINING SELF IN BED, ABLE TO WALK TO BATHROOM SBA WITH FWW. SPO2 GREATER THAN 90% ON RA, OCCATIONAL DESATUATION INTO THE 80 S, HAVING A NONPRODUCTIVE COUGH. CONTINUOUS TELE MONITORING, HR 60-70 S SINUS RHYTHM, BP STABLE WITH MAP GREATER THAN 65, MURMUR PRESENT, CAP REFILL LESS THAN 3S, STRONG PULSES PRESENT T/O. BOWEL TONES PRESENT IN ALL 4Q, PT REPORTING FEELINGS OF CONSTIPATION, ABD SOFT AND NON-TENDER. MULTIPLE BRUISES T/O AT DIFFERENT STAGES OF HEALING, RIGHT FLANK BRUSING WITH SIGNS OF HEALING. PT DRESSED WITH ASSISTANCE, IV S REMOVED. EDUCATION PROVIDED WITH MEDICINE CHANGES AND FOLLOW UP APPOINTMENTS. PT TAKEN OUT VIA WHEELCHAIR BY [facility].
[2024-06-07] MEDS ORDERED: Estradiol Vag Cream 0.1 MG/G 42.5 GM Tube VAG SCH (21:00)
== END 2024-06-07 16:14 | disposition home health service (06) | DRG 919 ==
LOC: PCU 13:00
PROVIDERS: Family Medicine Adult Medicine; Hospitalist; Internal Medicine Gastroenterology; Student in an Organized Health Care Education/Training Program; ADMIT Internal Medicine
PROC: 30233N1 Transfusion of Nonautologous Red Blood Cells into Peripheral Vein, Percutaneous Approach (ICD-10-PCS; 2024-05-28)
PROC: 5A09457 Assistance with Respiratory Ventilation, 24-96 Consecutive Hours, Continuous Positive Airway Pressure (ICD-10-PCS; 2024-05-28)
PROC: 3E03329 Introduction of Other Anti-infective into Peripheral Vein, Percutaneous Approach (ICD-10-PCS; 2024-05-28)
PROC: 0DB78ZX Excision of Stomach, Pylorus, Via Natural or Artificial Opening Endoscopic, Diagnostic (ICD-10-PCS; 2024-06-05)
PROC: 0DBA8ZX Excision of Jejunum, Via Natural or Artificial Opening Endoscopic, Diagnostic (ICD-10-PCS; 2024-06-05)
PROC: 0DB98ZX Excision of Duodenum, Via Natural or Artificial Opening Endoscopic, Diagnostic (ICD-10-PCS; principal; 2024-06-05 15:30)
DX: N99.841 Postprocedural hematoma of a genitourinary system organ or structure following other procedure (principal); A41.50 Gram-negative sepsis, unspecified; I21.A1 Myocardial infarction type 2; J15.0 Pneumonia due to Klebsiella pneumoniae; N17.0 Acute kidney failure with tubular necrosis; I13.0 Hypertensive heart and chronic kidney disease with heart failure and stage 1 through stage 4 chronic kidney disease, or unspecified chronic kidney disease; N18.4 Chronic kidney disease, stage 4 (severe); E87.1 Hypo-osmolality and hyponatremia; N25.81 Secondary hyperparathyroidism of renal origin; N13.30 Unspecified hydronephrosis; K92.1 Melena; T81.44XA Sepsis following a procedure, initial encounter; E11.22 Type 2 diabetes mellitus with diabetic chronic kidney disease; E78.5 Hyperlipidemia, unspecified; I25.10 Atherosclerotic heart disease of native coronary artery without angina pectoris; E03.9 Hypothyroidism, unspecified; I50.9 Heart failure, unspecified; I35.0 Nonrheumatic aortic (valve) stenosis; D63.1 Anemia in chronic kidney disease; R31.0 Gross hematuria; I77.9 Disorder of arteries and arterioles, unspecified; E11.21 Type 2 diabetes mellitus with diabetic nephropathy; E87.6 Hypokalemia; G47.9 Sleep disorder, unspecified; D50.0 Iron deficiency anemia secondary to blood loss (chronic); Z86.73 Personal history of transient ischemic attack (TIA), and cerebral infarction without residual deficits; Z98.61 Coronary angioplasty status; Z87.440 Personal history of urinary (tract) infections; Z87.19 Personal history of other diseases of the digestive system; Z98.890 Other specified postprocedural states; Z88.0 Allergy status to penicillin; Z88.8 Allergy status to other drugs, medicaments and biological substances; Z88.2 Allergy status to sulfonamides; Z79.899 Other long term (current) drug therapy; Z79.890 Hormone replacement therapy; Z79.2 Long term (current) use of antibiotics; Z97.8 Presence of other specified devices; Z86.16 Personal history of COVID-19; Z91.012 Allergy to eggs; Z91.011 Allergy to milk products; Z91.018 Allergy to other foods; Z85.828 Personal history of other malignant neoplasm of skin; Z91.09 Other allergy status, other than to drugs and biological substances; Z91.013 Allergy to seafood
CPT/HCPCS: 0202U; 36415; 36430; 71045; 74176; 74177; 76770; 78580; 80048; 80053; 80069; 81001; 82270; 82570; 82947; 83010; 83540; 83550; 83615; 83735; 83880; 83930; 84300; 84484; 85014; 85018; 85025; 85045; 85379; 86850; 86870; 86900; 86901; 86922; 87040; 87077; 87086; 87186; 88305; 88342; 93306; 94660; 94760; 94762; 96374; 96375; 97110; 97116; 97162; 97530; A9270; A9540; G0378; G0379; J0692; J0696; J1644; J2003; J2405; J2470; J2704; J2916; J3010; J7050; J7120; P9016; P9047; Q9967

== ENCOUNTER → 2024-07-04 | Outpatient (CLI) | payer OTHER ==
[~2024-07-04] MED LIST changes: +ASPI81CH PO; +DOCUZEN 8.6-501 EACH PO; +FERSU300 PO; +IPRATROPIUM BRO30 ML; +Imdur30 MG PO; +KLOR-CON M1010 MEQ PO; +LEVFLO500 PO; +LEVSOD25 PO; +MELATONIN5 M1 PO; +METAMUCIL POWD798 GM PO; +METO25 PO; +OSEL75CA PO; +PANT40 PO; +TORSE20 PO; +Tazicef1 G1 IV; +VISBIOME 112.51 EACH PO; +VITAMIN D5000 UNIT PO
[2024-07-04 17:46] LABS: Source, Urine Clean Catch
[2024-07-04 18:59] LABS: Appearance, Urine Hazy (Clear); Bilirubin, Urine Neg (Neg); Blood, Urine 3+ (Neg); Color, Urine Yellow (P-Yellow); Glucose Qualitative, Urine Neg (Neg); Ketones, Urine Neg (Neg); Leukocyte Esterase, Urine 3+ (Neg); Nitrite, Urine Neg (Neg); Protein, Urine 3+ (Neg); Specific Gravity, Urine 1.015 (1.003-1.022); Urobilinogen, Urine NORM (Normal)
[2024-07-04 19:24] LABS: Bacteria Many /hpf; Squamous Epithelial Cells Rare /hpf (Few); White Blood Cells, Urine 50-100 /hpf (0-5)
[2024-07-04 19:31] LABS: Mucus Light (0-Heavy); Yeast/Fungi Urine Rare /hpf
== END | disposition home or self-care (01) ==
LOC: LAB SHORT 17:44 → LAB 17:44
PROVIDERS: Obstetrics & Gynecology
DX: R32 Unspecified urinary incontinence (principal)
CPT/HCPCS: 81001; 87077; 87086; 87186

== ENCOUNTER 2024-07-07 18:50 | Inpatient (IN) | payer OTHER ==
[~2024-07-07] VITALS: Ht 157.5 cm; Wt 46.4 kg
[~2024-07-07 18:50] MED LIST changes: -DOCUZEN 8.6-501 EACH PO; -IPRATROPIUM BRO30 ML; -LEVSOD25 PO; -METAMUCIL POWD798 GM PO; -TORSE20 PO; -Tazicef1 G1 IV; -VISBIOME 112.51 EACH PO
[2024-07-07 19:25] VITALS: BP 172/93
[2024-07-07] MEDS ORDERED: Ondansetron HCl 2 MG / ML 2ML Vial IV PRN (20:15)
[2024-07-07] MEDS ORDERED: FLU VACC TS2024-25(6MOS UP)/PF 45 MCG/0.5 ML SYRINGE IM SCH (20:15)
[2024-07-07] MEDS ORDERED: NS 1,000 ML IV SCH (20:15)
[2024-07-07] MEDS ORDERED: Enoxaparin 40 MG/0.4 ML SYR SC SCH (21:00)
[2024-07-07] MEDS ORDERED: cefTAZidime 1,000 MG in NS 50 ML IV SCH (21:00)
[2024-07-07] MEDS ORDERED: NS 500 ML IV ONE (21:08)
[2024-07-07] MEDS ORDERED: Melatonin 5 MG Tablet PO PRN (21:20)
[2024-07-07 21:34] LABS: Source, Urine Clean Catch
[2024-07-07 21:45] LABS: Appearance, Urine Hazy (Clear); Bilirubin, Urine Neg (Neg); Blood, Urine 2+ (Neg); Color, Urine Yellow (P-Yellow); Glucose Qualitative, Urine 1+ (Neg); Ketones, Urine Neg (Neg); Leukocyte Esterase, Urine 3+ (Neg); Nitrite, Urine Neg (Neg); Protein, Urine 4+ (Neg); Urobilinogen, Urine NORM (Normal)
[2024-07-07 21:54] LABS: Bacteria Many /hpf; Hyaline Casts 0-2 /lpf (0-2); Squamous Epithelial Cells Mod /hpf (Few); White Blood Cells, Urine 25-50 /hpf (0-5); Yeast/Fungi Urine Mod /hpf
[2024-07-08 00:19] LABS: BASOPHILS ABSOLUTE AUTO 0.03 K/mm3 (0.00-0.23); BASOPHILS PERCENT AUTO 1 % (0-2); EOSINOPHILS ABSOLUTE AUTO 0.12 K/mm3 (0.00-0.68); EOSINOPHILS PERCENT AUTO 3 % (0-6); Hematocrit 30.6 % (33.0-51.0); Hemoglobin 10.2 g/dL (11.5-16.0); IMMATURE GRAN ABSOLUTE AUTO 0.02 K/mm3 (0.00-0.10); IMMATURE GRAN PERCENT AUTO 0 % (0-1); LYMPHOCYTES ABSOLUTE AUTO 0.97 K/mm3 (0.84-5.20); LYMPHOCYTES PERCENT AUTO 20 % (21-46); MONOCYTES ABSOLUTE AUTO 0.54 K/mm3 (0.16-1.47); MONOCYTES PERCENT AUTO 11 % (4-13); Mean Corpuscular HGB 32.3 pg (26.0-34.0); Mean Corpuscular HGB Conc 33.3 g/dL (31.5-36.5); Mean Corpuscular Volume 97 fL (80-100); Mean Platelet Volume 10.5 fL (9.1-12.4); NEUTROPHILS ABSOLUTE AUTO 3.14 K/mm3 (1.96-9.15); NEUTROPHILS PERCENT AUTO 65 % (41-73); Platelet Count 185 K/mm3 (150-400); RDW Coefficient Variation 14.5 % (11.7-14.2); RDW Standard Deviation 51.8 fL (35.1-46.3); Red Blood Cell Count 3.16 M/mm3 (3.80-5.20); White Blood Cell Count 4.82 K/mm3 (4.00-11.30)
[2024-07-08 00:30] VITALS: BP 143/65
[2024-07-08 00:39] LABS: Albumin, Blood 2.9 g/dL (3.4-5.0); Bilirubin, Total 0.4 mg/dL (0.1-1.0); Bun/Creatinine Ratio 15.6 (12.0-20.0); Calcium, Blood 9.1 mg/dL (8.5-10.1); Creatinine, Blood 2.24 mg/dL (0.40-1.00); Potassium, Blood 3.7 mmol/L (3.5-5.5); Total Protein, Blood 5.9 g/dL (6.4-8.2)
[2024-07-08 04:46] VITALS: BP 146/73
[2024-07-08] MEDS ORDERED: TORSE20 PO ×2 (05:45)
[2024-07-08] MEDS ORDERED: Levothyroxine Sodium 0.025 MG Tab PO SCH (06:00)
--- NOTE | 2024-07-08 06:01 | NUR ---
PT A&O X4, B/P ELEVATED THROUGH NIGHT, PT STATES SHE DID TAKE HER HOME MEDS YESTERDAY, WILL MONITOR. PT CONTINENT/INCONTINENT OF BLADDER WEARS DEPENDS, AND DOES HAVE A PESAR RING WHICH HAS BEEN CLEANED LATELY. PT WITH SIGNIFICANT UTI, RECIEVES IVABX. PO INTAKE ABOVE AVERAGE AND RECIEVING 1L OF IVF. TELE NSR IN 60'S, CBG 68 BUT HAD NOT EATEN ANYTHING FOR QUITE SOME TIME, SNACK GIVEN. WILL MONITOR.
[2024-07-08] MEDS ORDERED: Pantoprazole Sodium 40 MG Tab PO SCH (07:30)
[2024-07-08] MEDS ORDERED: Insulin Human Lispro 100 Units/ML 3ML Syringe SC SCH (07:30)
[2024-07-08 07:39] VITALS: BP 149/59
[2024-07-08] MEDS ORDERED: AmLODIPine Besylate 5 MG Tab PO SCH (09:00)
[2024-07-08] MEDS ORDERED: Potassium Chloride 20 MEQ TabCR PO SCH (09:00)
[2024-07-08] MEDS ORDERED: Metoprolol Tartrate 25 MG Tab PO SCH (09:00)
[2024-07-08] MEDS ORDERED: Isosorbide Mononitrate 30 MG TABCR PO SCH (09:00)
[2024-07-08 11:34] VITALS: BP 137/74
[2024-07-08] MEDS ORDERED: METAMUCIL POWD798 GM PO ×2 (12:41)
[2024-07-08] MEDS ORDERED: IPRATROPIUM BRO30 ML ×2 (12:43)
[2024-07-08] MEDS ORDERED: LEVSOD25 PO ×2 (13:05)
[2024-07-08 16:15] VITALS: BP 151/94
[2024-07-08 19:30] VITALS: BP 142/73
[2024-07-09 00:20] VITALS: BP 136/60
[2024-07-09 04:05] VITALS: BP 152/71
[2024-07-09 07:16] VITALS: BP 160/86
--- NOTE | 2024-07-09 07:20 | NUR ---
SHIFT SUMMARY PT IS A&OX4, FORGETFUL AT TIMES, PLEASANT AND COOPERATIVE WITH CARE. ELEVATED BP, OTHER VSS ON RA. PER TELEMETRY PT IS SR IN THE 70'S. DENIED PAIN. TOLERATING A REGULAR DIET. SBA/I IN ROOM/BR WITH 4WW. VOIDING IN TOILET, PULL-UP IN PLACE AND REPLACED NEEDED. HAD ONE SMALL AND ONE LARGE BM THIS SHIFT. REPOSITIONS HERSELF IN BED. CALLS APPROPRIATELY AND IS ABLE TO MAKE HER NEEDS KNOWN. BED IN LOWEST POSITION, CALL LIGHT WITHIN REACH.
[2024-07-09] MEDS ORDERED: Polyethylene Glycol 3350 17 gm PO PRN (07:30)
[2024-07-09] MEDS ORDERED: Cholecalciferol 1000 Unit Tablet (=25MCG) PO SCH (09:00)
[2024-07-09] MEDS ORDERED: Lactobacil 2-S.Thermo-Bifido 1 1 Cap PO SCH (09:00)
[2024-07-09 15:27] VITALS: BP 158/73
--- NOTE | 2024-07-09 16:45 | NUR ---
SHIFT SUMMARY PT AOX4, COOPERATIVE, ABLE TO MAKE NEEDS KNOWN. PT WENT ON WALK WITH THIS RN TODAY AROUND UNIT TWICE WITHOUT COMPLICATION. TOLERATING PO MEDICATIONS APPROPRITAELY. ON ROOM AIR. NO ACUTE EVENTS TOOK PLACE THIS SHIFT. BED IN LOWEST POSITION, CALL LIGHT WITHIN REACH.
[2024-07-09 19:25] VITALS: BP 173/100
[2024-07-09] MEDS ORDERED: NS 250 ML IV PRN (20:55)
[2024-07-09] MEDS ORDERED: Docusate Sodium/Senna 1 Tab PO SCH (21:00)
[2024-07-10 05:03] VITALS: BP 155/69
[2024-07-10 06:42] LABS: Hematocrit 31.8 % (33.0-51.0); Hemoglobin 10.3 g/dL (11.5-16.0); Mean Corpuscular HGB 31.7 pg (26.0-34.0); Mean Corpuscular HGB Conc 32.4 g/dL (31.5-36.5); Mean Corpuscular Volume 98 fL (80-100); Mean Platelet Volume 11.3 fL (9.1-12.4); Platelet Count 201 K/mm3 (150-400); RDW Coefficient Variation 14.5 % (11.7-14.2); RDW Standard Deviation 51.8 fL (35.1-46.3); Red Blood Cell Count 3.25 M/mm3 (3.80-5.20); White Blood Cell Count 4.11 K/mm3 (4.00-11.30)
[2024-07-10 07:07] LABS: Albumin, Blood 2.9 g/dL (3.4-5.0); Anion Gap 10 mmol/L (3-11); Blood Urea Nitrogen 34 mg/dL (8-24); Bun/Creatinine Ratio 13.6 (12.0-20.0); CO2, Blood 25 mmol/L (21-32); Calcium, Blood 9.6 mg/dL (8.5-10.1); Chloride, Blood 110 mmol/L (98-108); Glomerular Filtration Rate 19 (60-); Glucose, Blood 81 mg/dL (70-99); Magnesium, Blood 2.2 mg/dL (1.6-2.4); Phosphorus, Blood 3.4 mg/dL (2.5-4.9); Potassium, Blood 4.9 mmol/L (3.5-5.5); Sodium, Blood 140 mmol/L (136-145)
[2024-07-10 07:33] VITALS: BP 179/72
[2024-07-10] MEDS ORDERED: Estradiol Vag Cream 0.1 MG/G 42.5 GM Tube VAG SCH (09:00)
[2024-07-10] MEDS ORDERED: Tazicef1 G1 IV ×2 (15:28)
[2024-07-10] MEDS ORDERED: DOCUZEN 8.6-501 EACH PO ×2 (15:28)
[2024-07-10] MEDS ORDERED: VISBIOME 112.51 EACH PO ×4 (15:28→15:29)
[2024-07-10 15:56] VITALS: BP 121/66
--- NOTE | 2024-07-10 17:15 | NUR ---
PATIENT DC'D TO HOME VIA [facility]. DC INSTRUCTIONS AND EDUCATION DISCUSSED WITH PATIENT AND COPY PROVIDED. POWERGLIDE PLACED PRIOR TO DC AND PATIENT INSTRUCTED ON CARE. PATIENT TO FOLLOW UP WITH PCP AND ATC DAILY. PATIENT DENIES ANY FURTHER QUESTIONS OR CONCERNS.
[2024-07-11] MEDS ORDERED: cefTAZidime 1,000 MG in NS 50 ML IV SCH (06:00)
== END 2024-07-10 17:21 | disposition home or self-care (01) | DRG 690 ==
LOC: MEDS 18:50
PROVIDERS: Internal Medicine; ADMIT Internal Medicine
DX: N39.0 Urinary tract infection, site not specified (principal); N18.4 Chronic kidney disease, stage 4 (severe); I25.10 Atherosclerotic heart disease of native coronary artery without angina pectoris; E11.22 Type 2 diabetes mellitus with diabetic chronic kidney disease; E03.9 Hypothyroidism, unspecified; E78.5 Hyperlipidemia, unspecified; Z79.899 Other long term (current) drug therapy; Z79.890 Hormone replacement therapy; Z91.012 Allergy to eggs; Z88.0 Allergy status to penicillin; Z91.013 Allergy to seafood; Z88.2 Allergy status to sulfonamides; Z88.8 Allergy status to other drugs, medicaments and biological substances; Z91.018 Allergy to other foods
CPT/HCPCS: 36415; 80053; 80069; 81001; 82947; 83735; 83880; 85025; 85027; 87077; 87086; 87186; 96374; A9270; C1751; G0378; J0713; J1650; J7030; J7040

== ENCOUNTER 2024-07-11 00:37 | Day surgery (SDC) | payer OTHER ==
[~2024-07-11 00:37] MED LIST changes: +DOCUZEN 8.6-501 EACH PO; +IPRATROPIUM BRO30 ML; +LEVSOD25 PO; +METAMUCIL POWD798 GM PO; +TORSE20 PO; +Tazicef1 G1 IV; +VISBIOME 112.51 EACH PO
[2024-07-11] MEDS ORDERED: cefTAZidime 1,000 MG in NS 50 ML IV SCH (06:00)
[2024-07-11 15:48] VITALS: BP 155/77
== END 2024-07-11 16:22 | disposition home or self-care (01) ==
LOC: ATC 00:37
DX: N39.0 Urinary tract infection, site not specified (principal); B96.0 Mycoplasma pneumoniae [M. pneumoniae] as the cause of diseases classified elsewhere; I25.10 Atherosclerotic heart disease of native coronary artery without angina pectoris; E78.5 Hyperlipidemia, unspecified; E11.22 Type 2 diabetes mellitus with diabetic chronic kidney disease; I12.9 Hypertensive chronic kidney disease with stage 1 through stage 4 chronic kidney disease, or unspecified chronic kidney disease; N18.4 Chronic kidney disease, stage 4 (severe); Z79.899 Other long term (current) drug therapy
CPT/HCPCS: 96365; J0713

== ENCOUNTER 2024-07-12 00:43 | Day surgery (SDC) | payer OTHER ==
[2024-07-12] MEDS ORDERED: cefTAZidime 1,000 MG in NS 50 ML IV SCH (06:00)
[2024-07-12 15:10] VITALS: BP 176/73
== END 2024-07-12 14:00 | disposition home or self-care (01) ==
LOC: ATC 00:43
DX: N39.0 Urinary tract infection, site not specified (principal); B96.0 Mycoplasma pneumoniae [M. pneumoniae] as the cause of diseases classified elsewhere; I25.10 Atherosclerotic heart disease of native coronary artery without angina pectoris; E78.5 Hyperlipidemia, unspecified; E11.22 Type 2 diabetes mellitus with diabetic chronic kidney disease; I12.9 Hypertensive chronic kidney disease with stage 1 through stage 4 chronic kidney disease, or unspecified chronic kidney disease; N18.4 Chronic kidney disease, stage 4 (severe); Z88.0 Allergy status to penicillin; Z88.2 Allergy status to sulfonamides; Z91.012 Allergy to eggs
CPT/HCPCS: 96365; J0713

== ENCOUNTER 2024-07-13 02:33 | Day surgery (SDC) | payer OTHER ==
[2024-07-13] MEDS ORDERED: cefTAZidime 1,000 MG in NS 50 ML IV SCH (06:00)
[2024-07-13 15:21] VITALS: BP 164/69
== END 2024-07-13 15:50 | disposition home or self-care (01) ==
LOC: ATC 02:33
DX: N39.0 Urinary tract infection, site not specified (principal); B96.0 Mycoplasma pneumoniae [M. pneumoniae] as the cause of diseases classified elsewhere; E11.22 Type 2 diabetes mellitus with diabetic chronic kidney disease; I12.9 Hypertensive chronic kidney disease with stage 1 through stage 4 chronic kidney disease, or unspecified chronic kidney disease; N18.4 Chronic kidney disease, stage 4 (severe); I25.10 Atherosclerotic heart disease of native coronary artery without angina pectoris; E78.5 Hyperlipidemia, unspecified; Z79.899 Other long term (current) drug therapy; Z88.0 Allergy status to penicillin; Z88.2 Allergy status to sulfonamides; Z88.8 Allergy status to other drugs, medicaments and biological substances; Z91.012 Allergy to eggs
CPT/HCPCS: 96365; J0713

== ENCOUNTER 2024-07-14 04:38 | Day surgery (SDC) | payer OTHER ==
[2024-07-14] MEDS ORDERED: cefTAZidime 1,000 MG in NS 50 ML IV SCH (06:00)
[2024-07-14 15:02] VITALS: BP 149/82
== END 2024-07-14 15:21 | disposition home or self-care (01) ==
LOC: ATC 04:38
DX: N39.0 Urinary tract infection, site not specified (principal); B96.0 Mycoplasma pneumoniae [M. pneumoniae] as the cause of diseases classified elsewhere; I12.9 Hypertensive chronic kidney disease with stage 1 through stage 4 chronic kidney disease, or unspecified chronic kidney disease; E11.22 Type 2 diabetes mellitus with diabetic chronic kidney disease; N18.4 Chronic kidney disease, stage 4 (severe); I25.10 Atherosclerotic heart disease of native coronary artery without angina pectoris; E78.5 Hyperlipidemia, unspecified; Z79.899 Other long term (current) drug therapy; Z88.0 Allergy status to penicillin; Z88.2 Allergy status to sulfonamides; Z88.8 Allergy status to other drugs, medicaments and biological substances; Z91.012 Allergy to eggs; Z91.013 Allergy to seafood
CPT/HCPCS: 96365; J0713

== ENCOUNTER 2024-07-15 03:24 | Day surgery (SDC) | payer OTHER ==
[2024-07-15] MEDS ORDERED: cefTAZidime 1,000 MG in NS 50 ML IV SCH (07:00)
[2024-07-15 14:28] VITALS: BP 197/78
== END 2024-07-15 14:54 | disposition home or self-care (01) ==
LOC: ATC 03:24
DX: N39.0 Urinary tract infection, site not specified (principal); B96.0 Mycoplasma pneumoniae [M. pneumoniae] as the cause of diseases classified elsewhere; I12.9 Hypertensive chronic kidney disease with stage 1 through stage 4 chronic kidney disease, or unspecified chronic kidney disease; E11.22 Type 2 diabetes mellitus with diabetic chronic kidney disease; N18.4 Chronic kidney disease, stage 4 (severe); I25.10 Atherosclerotic heart disease of native coronary artery without angina pectoris; E78.5 Hyperlipidemia, unspecified; Z79.899 Other long term (current) drug therapy; Z88.2 Allergy status to sulfonamides; Z88.0 Allergy status to penicillin; Z88.8 Allergy status to other drugs, medicaments and biological substances; Z91.012 Allergy to eggs; Z91.018 Allergy to other foods; Z91.013 Allergy to seafood
CPT/HCPCS: 96365; J0713

== ENCOUNTER → 2024-08-29 | Outpatient (CLI) | payer OTHER ==
[2024-08-29 13:59] LABS: Source, Urine Clean Catch
[2024-08-29 15:41] LABS: Appearance, Urine Hazy (Clear); Bilirubin, Urine Neg (Neg); Blood, Urine 3+ (Neg); Glucose Qualitative, Urine 1+ (Neg); Ketones, Urine Neg (Neg); Leukocyte Esterase, Urine 2+ (Neg); Nitrite, Urine Neg (Neg); Protein, Urine 4+ (Neg); Specific Gravity, Urine 1.015 (1.003-1.022); Urobilinogen, Urine NORM (Normal)
[2024-08-29 15:50] LABS: Color, Urine Pale Yellow (P-Yellow)
[2024-08-29 15:52] LABS: Amorphous Light (0-Heavy); Bacteria Few /hpf; Renal Epithelial Rare /hpf (0-Rare); Squamous Epithelial Cells Few /hpf (Few); White Blood Cells, Urine 50-100 /hpf (0-5)
== END | disposition home or self-care (01) ==
LOC: LAB SHORT 13:42 → LAB 13:42
PROVIDERS: Obstetrics & Gynecology
DX: R35.0 Frequency of micturition (principal)
CPT/HCPCS: 81001; 87086

== ENCOUNTER → 2024-11-21 | Outpatient (CLI) | payer OTHER | END | disposition home or self-care (01) | LOC: LAB 14:05 → LAB SHORT 14:05 | DX: R82.71 Bacteriuria (principal) | CPT/HCPCS: 87086 ==

== ENCOUNTER → 2024-12-22 | Outpatient (CLI) | payer OTHER | LOC: LAB 17:58 → LAB SHORT 17:58 | DX: R30.0 Dysuria (principal) | CPT/HCPCS: 87086 ==

== ENCOUNTER → 2025-01-02 | Outpatient (CLI) | payer OTHER | LOC: LAB 11:47 → LAB SHORT 11:47 | DX: R35.0 Frequency of micturition (principal) | CPT/HCPCS: 87086 ==

== ENCOUNTER → 2025-01-18 | Outpatient (CLI) | payer OTHER ==
[2025-01-18 16:50] LABS: Bacterial Vaginosis PCR Negative (NEGATIVE); Candida Group, PCR NOT DETECTED (NOT DETECT); Candida glabrata-krusei, PCR NOT DETECTED (NOT DETECT)
== END ==
LOC: LAB 14:08 → LAB SHORT 14:08
PROVIDERS: Obstetrics & Gynecology
DX: N89.8 Other specified noninflammatory disorders of vagina (principal)
CPT/HCPCS: 81515

== ENCOUNTER → 2025-03-13 | Outpatient (CLI) | payer OTHER ==
[2025-03-13 16:33] LABS: Bacterial Vaginosis PCR Negative (NEGATIVE); Candida Group, PCR NOT DETECTED (NOT DETECT); Candida glabrata-krusei, PCR NOT DETECTED (NOT DETECT)
== END ==
LOC: LAB 14:11 → LAB SHORT 14:11
PROVIDERS: Obstetrics & Gynecology
DX: N89.8 Other specified noninflammatory disorders of vagina (principal)
CPT/HCPCS: 81515

== ENCOUNTER → 2025-04-12 | Outpatient (CLI) | payer OTHER ==
[2025-04-12 14:13] LABS: Source, Urine Clean Catch
[2025-04-12 14:31] LABS: Bilirubin, Urine Neg (Neg); Glucose Qualitative, Urine Neg (Neg); Ketones, Urine Neg (Neg); Leukocyte Esterase, Urine 3+ (Neg); Protein, Urine 4+ (Neg); Specific Gravity, Urine 1.010 (1.003-1.022); Urobilinogen, Urine NORM (Normal)
[2025-04-12 14:39] LABS: Color, Urine Pale Yellow (P-Yellow)
[2025-04-12 14:40] LABS: White Blood Cells, Urine 25-50 /hpf (0-5)
== END ==
LOC: LAB SHORT 13:24 → LAB 13:24
PROVIDERS: Obstetrics & Gynecology
DX: R35.0 Frequency of micturition (principal)
CPT/HCPCS: 81001; 87086